=== PATIENT | female | born 1945 | race Caucasian/White ===

== ENCOUNTER → 2016-11-20 | Outpatient (CLI) | payer MEDICARE, OTHER ==
[~2016-11-20] MED LIST: AMBI5TAB PO; APIX5TAB PO; CEFT500T3 PO; DILT31TA PO; GUAI100S5 PO; IPRA0.02 NEB; LEVA750T PO; METF-382 PO; METO25TA3 PO; METO50TA PO; MUCI30TA2 PO; MULT1TAB PO; PRAV40TA2 PO; PRED5PAK PO; PROB1CAP12 PO; PROT40TA PO; SM M250T PO; SODI7NEB3 NEB; SOTA120T PO
[2016-11-20 13:08] LABS: HEMATOCRIT 33.5 % (35.0-46.0); MEAN CELL VOLUME 82.9 FL (80.0-100.0); MEAN CORPUSCULAR HEMOGLOBIN 27.3 PG (27.0-34.0); MEAN CORPUSCULAR HGB CONC 32.9 % (32.0-36.0); PLATELET COUNT 283 TH/MM3 (150-450); RED BLOOD COUNT 4.04 MIL/MM3 (4.00-5.30); RED CELL DISTRIBUTION WIDTH 13.2 % (11.6-17.2); REVIEW FLAG FINAL; WHITE BLOOD COUNT 13.5 TH/MM3 (4.0-11.0)
[2016-11-20 13:31] LABS: ALKALINE PHOSPHATASE 61 U/L (45-117); ALT (GPT) 16 U/L (10-53); ANION GAP 10 MEQ/L (5-15); AST (GOT) 10 U/L (15-37); BLOOD UREA NITROGEN 14 MG/DL (7-18); CHLORIDE 97 MEQ/L (98-107); FREE T4 1.35 NG/DL (0.76-1.46); GLOMERULAR FILTRATION RATE 87 ML/MIN (>89); GLUCOSE,FASTING 93 MG/DL (74-99); HDL CHOLESTEROL 56.7 MG/DL (40.0-60.0); LDL CHOLESTEROL 41 MG/DL (0-99); POTASSIUM 3.1 MEQ/L (3.5-5.1); SODIUM (NA) 138 MEQ/L (136-145); TOTAL BILIRUBIN ADULT 0.4 MG/DL (0.2-1.0)
[2016-11-20 17:10] LABS: HEMOGLOBIN A1b 2.1 %; HEMOGLOBIN Ao 83.8 %; HEMOGLOBIN LA1C 1.7 %; HEMOGLOBIN P3 3.7 %
== END ==
LOC: PLAB 07:45
PROVIDERS: ATTEND Family Medicine
DX: E11.65 Type 2 diabetes mellitus with hyperglycemia (principal); I10 Essential (primary) hypertension; R53.83 Other fatigue
CPT/HCPCS: 80053; 80061; 83036; 84439; 84443; 85027

== ENCOUNTER 2016-12-01 13:04 | Inpatient (IN) | payer MEDICARE, OTHER ==
[2016-12-01] VITALS (10 sets, daily range): BP systolic 90–150; BP diastolic 47–75; PULSE 93–137; RESP 14–18; TEMP 98.2–98.3; O2SAT 95–98
[~2016-12-01] VITALS: Ht 172.7 cm; Wt 60.0 kg
[~2016-12-01 13:04] MED LIST changes: -AMBI5TAB PO; -APIX5TAB PO; -DILT31TA PO; -GUAI100S5 PO; -IPRA0.02 NEB; -LEVA750T PO; -METO25TA3 PO; -METO50TA PO; -MULT1TAB PO; -PRED5PAK PO; -PROB1CAP12 PO; -PROT40TA PO; -SM M250T PO; -SODI7NEB3 NEB
--- NOTE | 2016-12-01 14:55 | PD ---
HPI Chief Complaint: GI Complaint Time Seen by Provider: 14:51 Travel History International Travel<30 days: No Contact w/Intl Traveler<30days: No Traveled to known affect area: No History of Present Illness HPI 71-year-old female with history of hypertension, A. fib with RVR, status post ablation October 29, 2016, diabetes, presents to emergency department for evaluation of not feeling well. Patient states that she has progressively gone "downhill" since her ablation October 29. 2 weeks ago she was on Bactrim for upper respiratory infection but this has not seemed to fully resolve. Patient has had intermittent fevers over the last 2 weeks with most recent fever last evening 101 and MAXIMUM TEMPERATURE 103. Patient states that she has had diarrhea as well. She feels weak. States that her blood pressure has been low in her heart rate has at times been going up into the 150s. She has been dizzy with transition to standing. She denies chest pain or tightness. No difficulty breathing. She has no pain to report. She has not been nauseous or vomiting. She has no other symptoms to report. Patient is followed by Dr. Cui for bronchiectasis. PFSH Past Medical History Hx Anticoagulant Therapy: Yes Arthritis: Yes Atrial Fibrillation: Yes Depression: Yes Heart Rhythm Problems: Yes Cancer: No Cardiovascular Problems: Yes Diabetes: Yes Diminished Hearing: No Endocrine: Yes Genitourinary: No Hepatitis: No Hiatal Hernia: No Hypertension: Yes Immune Disorder: No Musculoskeletal: Yes (OSTEOARTHRITIS IN NECK) Neurologic: No Psychiatric: No Reproductive: No Respiratory: Yes Thyroid Disease: No Menopausal: Yes Tubal Ligation: Yes Past Surgical History Abdominal Surgery: Yes (APPENDECTOMY) AICD: No Appendectomy: Yes Cardiac Surgery: Yes (ATRIAL ABLATION) Ear Surgery: No Endocrine Surgery: No Eye Surgery: Yes (CATARACTS REMOVAL WITH LENSE IMPLANTS) Genitourinary Surgery: No Gynecologic Surgery: Yes (BILATERAL TUBAL LIGATION) Joint Replacement: Yes (LEFT HIP) Oral Surgery: No Pacemaker: No Thoracic Surgery: Yes (BREAST AUGMENTATION) Other Surgery: Yes (RECTAL FISTULA REPAIR, BREAST AUGMENTATION) Social History Alcohol Use: No Tobacco Use: No Substance Use: No Allergies-Medications (Allergen,Severity, Reaction): Coded Allergies: Bactrim (Verified Allergy, Intermediate, Nausea/Vomiting, 11/10/16) Sulfa (Verified Allergy, Intermediate, Nausea/Vomiting, 11/10/16) *MDRO Multi-Drug Resistant Organism (Unverified Allergy, Unknown, 11/10/16 ) MRSA Reported Meds & Prescriptions Reported Meds & Active Scripts Active Reported Sotalol (Sotalol HCl) 120 Mg Tab 120 Mg PO BID Pravastatin 40 Mg Tab 40 Mg PO DAILY Metformin ER (Metformin HCl) 1,000 Mg Nasreen 1,000 Mg PO DAILY With evening meal Mucinex DM (Dextromethorphan-Guaifenesin) 30-600 Mg Tab 2 Tab PO BID PRN Ceftin (Cefuroxime Axetil) 500 Mg Tab 500 Mg PO BID Review of Systems Except as stated in HPI: all other systems reviewed are Neg Physical Exam Narrative GENERAL: Well-nourished female patient, ambulatory and in no acute distress SKIN: Warm and dry. HEAD: Atraumatic. Normocephalic. EYES: Pupils equal and round. No scleral icterus. No injection or drainage. ENT: No nasal bleeding or discharge. Mucous membranes pink and moist. NECK: Trachea midline. No JVD. CARDIOVASCULAR: Elevated rate and rhythm. No murmur appreciated. RESPIRATORY: No accessory muscle use. Coarse cough, diminished bases to auscultation. Breath sounds equal bilaterally. GASTROINTESTINAL: Abdomen soft, non-tender, nondistended. Hepatic and splenic margins not palpable. MUSCULOSKELETAL: No obvious deformities. No clubbing. No cyanosis. No edema. NEUROLOGICAL: Awake and alert. No obvious cranial nerve deficits. Motor grossly within normal limits. Normal speech. PSYCHIATRIC: Appropriate mood and affect; insight and judgment normal. Data Data Last Documented VS Vital Signs Date Time Temp Pulse Resp B/P Pulse Ox O2 Delivery O2 Flow Rate FiO2 12/01/16 13:07 98.2 108 14 121/75 95 Room Air Orders Electrocardiogram (12/01/16 14:49) Complete Blood Count With Diff (12/01/16 14:49) Comprehensive Metabolic Panel (12/01/16 14:49) Prothrombin Time / Inr (Pt) (12/01/16 14:49) Act Partial Throm Time (Ptt) (12/01/16 14:49) Lactic Acid Sepsis Protocol (12/01/16 14:49) Magnesium (Mg) (12/01/16 14:49) Ckmb (Isoenzyme) Profile (12/01/16 14:49) Troponin I (12/01/16 14:49) Urinalysis - C+S If Indicated (12/01/16 14:49) Influenzae A/B Antigen (12/01/16 14:49) Blood Culture (12/01/16 14:49) Chest, Single Ap (12/01/16 14:49) C Diff Toxin Pcr (12/01/16 14:49) MDM Medical Decision Making Medical Screen Exam Complete: Yes Emergency Medical Condition: Yes Medical Record Reviewed: Yes Differential Diagnosis Pneumonia versus influenza versus UTI versus sepsis versus electrolyte abnormality versus C. difficile versus gastroenteritis Narrative Course 71-year-old female presents to emergency department for evaluation. Patient appears as though she does not feel well but she is without distress. Heart rate slightly elevated. Workup is initiated here in the emergency department. Once a medical bed becomes available, patient will be transferred and care assumed by that provider. Condition: Stable Jeaneth Barakat Dec 01, 2016 14:55
--- NOTE | 2016-12-01 15:42 | RADRPT ---
EXAM DATE/TIME: 12/01/2016 14:55 [facility] COMPARISON: CHEST SINGLE AP, November 10, 2016, 18:35. INDICATIONS : Short of breath, coughing for 5 days, fever MEDICAL HISTORY : Hypertension. Chronic obstructive pulmonary disease. A-fib SURGICAL HISTORY : cardiac ablation ENCOUNTER: Initial ACUITY: 4 - 6 days PAIN SCORE: 10/10 LOCATION: Bilateral chest FINDINGS: Increased density has developed within the right lung base. Left lung is relatively clear. Lungs are hyperinflated. Heart and mediastinal structures are stable. CONCLUSION: Right basilar opacity characteristic of developing airspace disease. COPD. Brian Alanis MD on December 01, 2016 at 15:39 Board Certified Radiologist. This report was verified electronically.
[2016-12-01] MEDS ORDERED: SODIUM CHLORID 0.9% 500 ML INJ 500 ML IV ONE ×2 (15:45→17:00)
[2016-12-01 15:57] LABS: AUTOMATED NEUTROPHIL # 9.1 TH/MM3 (1.8-7.7); BASOPHIL % 0.4 % (0.0-2.0); EOSINOPHIL # 0.1 TH/MM3 (0-0.4); EOSINOPHIL % 0.8 % (0.0-4.0); HEMATOCRIT 35.4 % (35.0-46.0); HEMO FLAGS DIFF FINAL; LYMPH % 18.3 % (9.0-44.0); LYMPHOCYTE # 2.3 TH/MM3 (1.0-4.8); MEAN CELL VOLUME 82.5 FL (80.0-100.0); MEAN CORPUSCULAR HEMOGLOBIN 27.1 PG (27.0-34.0); MEAN CORPUSCULAR HGB CONC 32.8 % (32.0-36.0); MONO % 8.3 % (0.0-8.0); NEUT % 72.2 % (16.0-70.0); PLATELET COUNT 368 TH/MM3 (150-450); RED BLOOD COUNT 4.29 MIL/MM3 (4.00-5.30); RED CELL DISTRIBUTION WIDTH 12.8 % (11.6-17.2); WHITE BLOOD COUNT 12.5 TH/MM3 (4.0-11.0)
[2016-12-01] MEDS ORDERED: LEVOFLOXACIN 500 MG PREMIX INJ 100 ML IV ONE (16:00)
[2016-12-01 16:06] LABS: APTT (PATIENT) 28.7 SEC (24.3-30.1); PROTHROMBIN TIME - PATIENT 10.9 SEC (9.8-11.6)
--- NOTE | 2016-12-01 16:07 | PD ---
HPI Chief Complaint: GI Complaint Time Seen by Provider: 15:29 Travel History International Travel<30 days: No Contact w/Intl Traveler<30days: No Traveled to known affect area: No History of Present Illness HPI 71-year-old female came to the emergency room with history of vomiting, diarrhea , decrease appetite, weakness for past couple days. Patient has history of bronchiectasis and has been coughing but says the cough is not much different than her baseline cough. She has also been running fever with temperature 103- 102.5. Here she was afebrile. She had in ablation for atrial fibrillation done few months ago from [place]. However today it was noticed on her EKG the patient was in atrial fibrillation with RVR. She's not complaining of any chest pain. PFSH Past Medical History Narrative Medical List of her past medical history as reviewed from the nursing note. Hx Anticoagulant Therapy: Yes Arthritis: Yes Atrial Fibrillation: Yes Depression: Yes Heart Rhythm Problems: Yes Cancer: No Cardiovascular Problems: Yes Diabetes: Yes Patient Takes Glucophage: Yes (12/01/16 0730) Diminished Hearing: No Endocrine: Yes Genitourinary: No Hepatitis: No Hiatal Hernia: No Hypertension: Yes Immune Disorder: No Musculoskeletal: Yes (OSTEOARTHRITIS IN NECK) Neurologic: No Psychiatric: No Reproductive: No Respiratory: Yes Thyroid Disease: No Tetanus Vaccination: > 5 Years Influenza Vaccination: Yes Menopausal: Yes Tubal Ligation: Yes Past Surgical History Abdominal Surgery: Yes (APPENDECTOMY) AICD: No Appendectomy: Yes Cardiac Surgery: Yes (ATRIAL ABLATION) Ear Surgery: No Endocrine Surgery: No Eye Surgery: Yes (CATARACTS REMOVAL WITH LENSE IMPLANTS) Genitourinary Surgery: No Gynecologic Surgery: Yes (BILATERAL TUBAL LIGATION) Joint Replacement: Yes (LEFT HIP) Oral Surgery: No Pacemaker: No Thoracic Surgery: Yes (BREAST AUGMENTATION) Other Surgery: Yes (RECTAL FISTULA REPAIR, BREAST AUGMENTATION, SINUS SURGERY ) Social History Alcohol Use: No Tobacco Use: No Substance Use: No Allergies-Medications (Allergen,Severity, Reaction): Coded Allergies: Bactrim (Verified Allergy, Intermediate, Nausea/Vomiting, 12/01/16) Sulfa (Verified Allergy, Intermediate, Nausea/Vomiting, 12/01/16) *MDRO Multi-Drug Resistant Organism (Unverified Allergy, Unknown, 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 Comments List of her allergies reviewed from the nursing note. Reported Meds & Prescriptions Reported Meds & Active Scripts Active Reported Eliquis (Apixaban) 5 Mg Tab 5 Mg PO BID Cardizem (Diltiazem HCl) 30 Mg Tab 30 Mg PO BID Sotalol (Sotalol HCl) 120 Mg Tab 120 Mg PO BID Pravastatin 40 Mg Tab 40 Mg PO AC DINNER Metformin ER (Metformin HCl) 1,000 Mg Nasreen 1,000 Mg PO AC DINNER With evening meal Mucinex DM (Dextromethorphan-Guaifenesin) 30-600 Mg Tab 1 Tab PO BID PRN Narrative Medication List of her home medications reviewed from the nursing note. Review of Systems Except as stated in HPI: all other systems reviewed are Neg Physical Exam Narrative GENERAL: Awake, alert, elderly, frail, moderate distress. SKIN: Warm and dry. HEAD: Atraumatic. Normocephalic. EYES: Pupils equal and round. No scleral icterus. No injection or drainage. ENT: No nasal bleeding or discharge. Mucous membranes pink and moist. NECK: Trachea midline. No JVD. CARDIOVASCULAR: Irregularly irregular rhythm, RVR. No murmur appreciated. RESPIRATORY: No accessory muscle use. Clear to auscultation. Breath sounds equal bilaterally. GASTROINTESTINAL: Abdomen soft, non-tender, nondistended. Hepatic and splenic margins not palpable. MUSCULOSKELETAL: No obvious deformities. No clubbing. No cyanosis. No edema. NEUROLOGICAL: Awake and alert. No obvious cranial nerve deficits. Motor grossly within normal limits. Normal speech. PSYCHIATRIC: Appropriate mood and affect; insight and judgment normal. Data Data Last Documented VS Vital Signs Date Time Temp Pulse Resp B/P Pulse Ox O2 Delivery O2 Flow Rate FiO2 12/01/16 16:30 107 18 125/58 97 Room Air 12/01/16 13:07 98.2 Orders Electrocardiogram (12/01/16 14:49) Complete Blood Count With Diff (12/01/16 14:49) Comprehensive Metabolic Panel (12/01/16 14:49) Prothrombin Time / Inr (Pt) (12/01/16 14:49) Act Partial Throm Time (Ptt) (12/01/16 14:49) Lactic Acid Sepsis Protocol (12/01/16 14:49) Magnesium (Mg) (12/01/16 14:49) Ckmb (Isoenzyme) Profile (12/01/16 14:49) Troponin I (12/01/16 14:49) Urinalysis - C+S If Indicated (12/01/16 14:49) Influenzae A/B Antigen (12/01/16 14:49) Blood Culture (12/01/16 14:49) Chest, Single Ap (12/01/16 14:49) C Diff Toxin Pcr (12/01/16 14:49) Sodium Chlorid 0.9% 500 Ml Inj (Ns 500 M (12/01/16 15:45) Blood Glucose (12/01/16 15:35) Blood Culture (12/01/16 15:59) Levofloxacin 500 Mg Premix Inj (Levaquin (12/01/16 16:00) Urine Culture (12/01/16 16:30) Sodium Chlorid 0.9% 500 Ml Inj (Ns 500 M (12/01/16 17:00) Admit Order (Ed Use Only) (12/01/16 17:14) Labs Laboratory Tests Test 12/01/16 12/01/16 15:35 16:30 White Blood Count 12.5 TH/MM3 Red Blood Count 4.29 MIL/MM3 Hemoglobin 11.6 GM/DL Hematocrit 35.4 % Mean Corpuscular Volume 82.5 FL Mean Corpuscular Hemoglobin 27.1 PG Mean Corpuscular Hemoglobin 32.8 % Concent Red Cell Distribution Width 12.8 % Platelet Count 368 TH/MM3 Mean Platelet Volume 8.2 FL Neutrophils (%) (Auto) 72.2 % Lymphocytes (%) (Auto) 18.3 % Monocytes (%) (Auto) 8.3 % Eosinophils (%) (Auto) 0.8 % Basophils (%) (Auto) 0.4 % Neutrophils # (Auto) 9.1 TH/MM3 Lymphocytes # (Auto) 2.3 TH/MM3 Monocytes # (Auto) 1.0 TH/MM3 Eosinophils # (Auto) 0.1 TH/MM3 Basophils # (Auto) 0.0 TH/MM3 CBC Comment DIFF FINAL Differential Comment Prothrombin Time 10.9 SEC Prothromb Time International 1.0 RATIO Ratio Activated Partial 28.7 SEC Thromboplast Time Sodium Level 135 MEQ/L Potassium Level 4.2 MEQ/L Chloride Level 96 MEQ/L Carbon Dioxide Level 26.9 MEQ/L Anion Gap 12 MEQ/L Blood Urea Nitrogen 9 MG/DL Creatinine 0.61 MG/DL Estimat Glomerular Filtration 96 ML/MIN Rate Random Glucose 131 MG/DL Lactic Acid Level 2.0 mmol/L Calcium Level 9.4 MG/DL Magnesium Level 1.6 MG/DL Total Bilirubin 0.3 MG/DL Aspartate Amino Transf 11 U/L (AST/SGOT) Alanine Aminotransferase 19 U/L (ALT/SGPT) Alkaline Phosphatase 72 U/L Total Creatine Kinase 29 U/L Troponin I LESS THAN 0.02 NG/ML Total Protein 7.8 GM/DL Albumin 3.2 GM/DL Urine Color YELLOW Urine Turbidity CLEAR Urine pH 6.0 Urine Specific [place] 1.008 Urine Protein NEG mg/dL Urine Glucose (UA) NEG mg/dL Urine Ketones NEG mg/dL Urine Occult Blood TRACE Urine Nitrite NEG Urine Bilirubin NEG Urine Urobilinogen LESS THAN 2.0 MG/DL Urine Leukocyte Esterase LARGE Urine RBC 7 /hpf Urine WBC 27 /hpf Urine Squamous Epithelial 2 /hpf Cells Urine Bacteria RARE /hpf Urine Mucus FEW /lpf Microscopic Urinalysis Comment CATH-CULTURE IND MDM Medical Decision Making Medical Screen Exam Complete: Yes Emergency Medical Condition: Yes Medical Record Reviewed: Yes Interpretation(s) Twelve-lead EKG was reviewed by me. Atrial fibrillation, RVR, normal axis. Heart rate of 139 bpm. Differential Diagnosis Pneumonia, electrolyte abnormalities, colitis Narrative Course 4:47 PM chest x-ray was suggestive of a right lower lobe infiltrate. Patient was started on Levaquin. After getting 500 cc of IV fluid bolus her heart rate came down to 106. I've ordered another 500 cc of fluid bolus. She has some leukocytosis and left shift. She will require admission. 4:52 PM urine analysis shows UTI. Awaiting for the hospitalist to call back. 5:23 PM I was in the room talking to the patient and letting her know about her results and the decision to admit her when I noticed that on the monitor she was normal sinus rhythm. Patient is comfortable with the plan for admission. I answered all her questions to the best of my ability. Procedures EKG Prior to Arrival: Yes Diagnosis Primary Impression: Atrial fibrillation with tachycardic ventricular rate Additional Impressions: UTI (urinary tract infection) Qualified Code: N39.0 - Urinary tract infection without hematuria, site unspecified Pneumonia Qualified Code: J18.1 - Pneumonia of right lower lobe due to infectious organism Dehydration Admitting Information Admitting Physician Requests: Admit Condition: Stable Thor,Shravanti R. MD Dec 01, 2016 16:07 Marya Mcrae MD Dec 01, 2016 16:07
[2016-12-01 16:38] LABS: ANION GAP 12 MEQ/L (5-15); AST (GOT) 11 U/L (15-37); BICARBONATE 26.9 MEQ/L (21.0-32.0); BLOOD UREA NITROGEN 9 MG/DL (7-18); CHLORIDE 96 MEQ/L (98-107); GLOMERULAR FILTRATION RATE 96 ML/MIN (>89); MAGNESIUM 1.6 MG/DL (1.5-2.5); POTASSIUM 4.2 MEQ/L (3.5-5.1); SODIUM (NA) 135 MEQ/L (136-145)
[2016-12-01 16:43] LABS: ALKALINE PHOSPHATASE 72 U/L (45-117); ALT (GPT) 19 U/L (10-53); TOTAL BILIRUBIN ADULT 0.3 MG/DL (0.2-1.0)
[2016-12-01 16:46] LABS: BACTERIA, URINE RARE /hpf; BLOOD, URINE TRACE (NEG); GLUCOSE,URINE NEG (NEG); KETONE, URINE NEG (NEG); MUCUS URINE FEW /lpf (OCC); NITRITE,URINE NEG (NEG); SQUAMOUS EPITHELIAL CELL URINE 2 /hpf (0-5); URINE COLOR YELLOW (YELLW/STRAW)
[2016-12-01 16:47] LABS: COMMENT (UR) CATH-CULTURE IND; CULTURE IF INDICATED CATH CULTURE IND
[2016-12-01] MEDS ORDERED: DILT31TA PO (17:02)
[2016-12-01] MEDS ORDERED: APIX5TAB PO (17:02)
[2016-12-01 17:11] LABS: CREATINE KINASE 29 U/L (26-192)
--- NOTE | 2016-12-01 18:33 | HHI.HP ---
HPI Service [facility] Primary Care Physician Alma Lopez MD Admission Diagnosis pneumonia, UTI, atrial fibrillation with RVR, dehydration Diagnoses: Chief Complaint: weakness, SOB, elevated HR, diarrhea. Travel History International Travel<30 Days: No Contact w/Intl Traveler <30 Da: No Traveled to Known Affected Are: No History of Present Illness 71-year-old female with a medical history significant for atrial fibrillation status post ablation 2, most recently in October at [facility]. She also has a history of bronchiectasis, diabetes, and hyperlipidemia. The patient presented with multiple complaints. She has a chronic cough from bronchiectasis and has been on alternating tremor and doxycycline per her fingerprint expert. The patient's cough is productive with yellow to green secretions. She endorsed having fevers up to 103 Over the past couple of days. For the past 4-5 days she has been having diarrhea 1-2 times a day with associated abdominal cramps. She also has been having issues with her heart rate going up to 150 at times. Initially she was put on Cardizem 3 times daily in addition to sotalol. However she reports this causes her blood pressure to drop to the point where she would become dizzy. She did contact her process design engineer's at [facility] and her dose was decreased to 30 mg twice daily. However she continues to experience the same symptoms. She also complained of burning with urination. In the emergency room, the patient's EKG was noted to be A. fib with RVR with a rate of 139. She was given IV fluid in the rate came down to low 100s in sinus rhythm. Chest x-ray revealed a right basilar opacity characteristic of developing airspace disease. Her urinalysis is abnormal and suggestive of UTI. Review of Systems Constitutional: COMPLAINS OF: Fever, Chills Endocrine: DENIES: Polydipsia Eyes: COMPLAINS OF: Vision loss Ears, nose, mouth, throat: DENIES: Nasal discharge, Throat pain Respiratory: COMPLAINS OF: Cough, Sputum production, Shortness of breath Cardiovascular: COMPLAINS OF: Palpitations, Dyspnea on Exertion, DENIES: Chest pain, Lower Extremity Edema Gastrointestinal: DENIES: Nausea Genitourinary: COMPLAINS OF: Urgency, Dysuria Integumentary: DENIES: Rash Neurologic: DENIES: Headache Psychiatric: DENIES: Mood changes Past Family Social History Past Medical History Atrial fibrillation status post ablation 2, most recently in October of this year Type 2 diabetes Bronchiectasis Osteoarthritis Past Surgical History Appendectomy Cardiac Ablation 2 Bilateral tubal ligation Left hip surgery Breast augmentation Reported Medications Reported Meds & Active Scripts Active Reported Eliquis (Apixaban) 5 Mg Tab 5 Mg PO BID Cardizem (Diltiazem HCl) 30 Mg Tab 30 Mg PO BID Sotalol (Sotalol HCl) 120 Mg Tab 120 Mg PO BID Pravastatin 40 Mg Tab 40 Mg PO AC DINNER Metformin ER (Metformin HCl) 1,000 Mg Nasreen 1,000 Mg PO AC DINNER With evening meal Mucinex DM (Dextromethorphan-Guaifenesin) 30-600 Mg Tab 1 Tab PO BID PRN Allergies: Coded Allergies: Bactrim (Verified Allergy, Intermediate, Nausea/Vomiting, 12/01/16) Sulfa (Verified Allergy, Intermediate, Nausea/Vomiting, 12/01/16) *MDRO Multi-Drug Resistant Organism (Unverified Allergy, Unknown, 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 Family History Mother of old age in her 90s. Father's history is unknown. Social History Patient never smoked but her was a lifelong smoker who of lung cancer. She was also exposed to secondhand smoking at her workplace. She denies alcohol use. Physical Exam Vital Signs Vital Signs Date Time Temp Pulse Resp B/P Pulse Ox O2 Delivery O2 Flow Rate FiO2 12/01/16 18:00 105 16 144/64 98 Room Air 12/01/16 16:30 107 18 125/58 97 Room Air 12/01/16 15:30 137 18 102/58 97 Room Air 12/01/16 13:07 98.2 108 14 121/75 95 Room Air Physical Exam GENERAL: Elderly female. She has a spasmodic cough. SKIN: No rashes, ecchymoses or lesions. Cool and dry. HEAD: Atraumatic. Normocephalic. No temporal or scalp tenderness. EYES: Pupils equal round and reactive. Extraocular motions intact. No scleral icterus. No injection or drainage. ENT: Nose without bleeding, purulent drainage or septal hematoma. Throat without erythema, tonsillar hypertrophy or exudate. Uvula midline. Airway patent. NECK: Trachea midline. No JVD or lymphadenopathy. Supple, nontender, no meningeal signs. CARDIOVASCULAR: Rate of 105 and regular rhythm without murmurs, gallops, or rubs. RESPIRATORY: Diminished breath sounds bilaterally at the bases. There is some occasional rhonchi bilaterally. No appreciable wheezing. GASTROINTESTINAL: Abdomen soft, non-tender, nondistended. No hepato-splenomegaly , or palpable masses. No guarding. MUSCULOSKELETAL: Extremities without clubbing, cyanosis, or edema. No joint tenderness, effusion, or edema noted. No calf tenderness. Negative Homans sign bilaterally. NEUROLOGICAL: Awake and alert. Cranial nerves II through XII intact. Motor and sensory grossly within normal limits. Five out of 5 muscle strength in all muscle groups. Normal speech. Laboratory Laboratory Tests Test 12/01/16 12/01/16 15:35 16:30 White Blood Count 12.5 Red Blood Count 4.29 Hemoglobin 11.6 Hematocrit 35.4 Mean Corpuscular Volume 82.5 Mean Corpuscular Hemoglobin 27.1 Mean Corpuscular Hemoglobin 32.8 Concent Red Cell Distribution Width 12.8 Platelet Count 368 Mean Platelet Volume 8.2 Neutrophils (%) (Auto) 72.2 Lymphocytes (%) (Auto) 18.3 Monocytes (%) (Auto) 8.3 Eosinophils (%) (Auto) 0.8 Basophils (%) (Auto) 0.4 Neutrophils # (Auto) 9.1 Lymphocytes # (Auto) 2.3 Monocytes # (Auto) 1.0 Eosinophils # (Auto) 0.1 Basophils # (Auto) 0.0 CBC Comment DIFF FINAL Differential Comment Prothrombin Time 10.9 Prothromb Time International 1.0 Ratio Activated Partial 28.7 Thromboplast Time Sodium Level 135 Potassium Level 4.2 Chloride Level 96 Carbon Dioxide Level 26.9 Anion Gap 12 Blood Urea Nitrogen 9 Creatinine 0.61 Estimat Glomerular Filtration 96 Rate Random Glucose 131 Lactic Acid Level 2.0 Calcium Level 9.4 Magnesium Level 1.6 Total Bilirubin 0.3 Aspartate Amino Transf 11 (AST/SGOT) Alanine Aminotransferase 19 (ALT/SGPT) Alkaline Phosphatase 72 Total Creatine Kinase 29 Troponin I LESS THAN 0.02 Total Protein 7.8 Albumin 3.2 Urine Color YELLOW Urine Turbidity CLEAR Urine pH 6.0 Urine Specific [place] 1.008 Urine Protein NEG Urine Glucose (UA) NEG Urine Ketones NEG Urine Occult Blood TRACE Urine Nitrite NEG Urine Bilirubin NEG Urine Urobilinogen LESS THAN 2.0 Urine Leukocyte Esterase LARGE Urine RBC 7 Urine WBC 27 Urine Squamous Epithelial 2 Cells Urine Bacteria RARE Urine Mucus FEW Microscopic Urinalysis Comment CATH-CULTURE IND Date/Time Procedure Status Source Growth 12/01/16 16:30 Urine Culture Received Urine Catheterized Urine Pending 12/01/16 15:55 Influenza Types A,B Antigen (SANTOS) - Final Complete Nasal Washing NEGATIVE FOR FLU A AND B ANTIGEN.... 12/01/16 15:35 Aerobic Blood Culture Received Blood Peripheral Pending 12/01/16 15:35 Anaerobic Blood Culture Received Blood Peripheral Pending Result Diagram: 12/01/16 1535 12/01/16 1535 Imaging Last Impressions Chest X-Ray 12/01/16 1449 Signed Impressions: Service Date/Time: Thursday, December 01, 2016 14:55 - CONCLUSION: Right basilar opacity characteristic of developing airspace disease. COPD. Brian Alanis MD Assessment and Plan Problem List: (1) Pneumonia ICD Code: J18.9 Status: Acute (2) UTI (urinary tract infection) ICD Code: N39.0 Status: Acute (3) Atrial fibrillation with tachycardic ventricular rate ICD Code: I48.91 Status: Acute (4) Dehydration ICD Code: E86.0 Status: Acute Assessment and Plan 71-year-old female with Pneumonia/Bronchiectasis: Patient with known history of bronchiectasis, chronic cough. Has been on and off antibiotics Bactrim and doxycycline outpatient. - Continue Levaquin. Blood cultures pending - Scheduled breathing treatments, incentive spirometry. Robitussin for cough. - Consult the patient's fingerprint expert Dr. Cui for assistance. - Urine Legionella and pneumococcal. Obtain sputum culture A. fib with RVR on presentation: The patient's heart rate has since come down with IV fluid. She recently had a cardiac ablation at the [facility] in October. She normally takes sotalol and Cardizem. She reports having hypotensive episodes with Cardizem recently. She has been in contact with her process design engineer at the [facility] where advised her to come to the ER today her blood pressure dropped again. - For now rate is still elevated and BP is normal. we'll continue sotalol and Cardizem, home dose. - Consult the patient's local process design engineer, Dr. Smith to adjust rate control medications as indicated. - Continue Eliquis Urinary tract infection: Abnormal urinalysis. - Patient on Levaquin as above. Follow urine cultures. Dehydration/hyponatremia: Continue IV fluid 100 cc/h. Reassess fluid status in the morning. Diabetes: Continue Metformin. Diabetic diet. DVT PPx: Patient on Eliquis. Discussed Condition With Dr. Mcrae Physician Certification 2 Midnight Certification Type: Admission for Inpatient Services Order for Inpatient Services The services are ordered in accordance with Medicare regulations or non- Medicare payer requirements, as applicable. In the case of services not specified as inpatient-only, they are appropriately provided as inpatient services in accordance with the 2-midnight benchmark. Estimated LOS (days): 3 days is the estimated time the patient will need to remain in the hospital, assuming treatment plan goals are met and no additional complications. Post-Hospital Plan: Home Problem Qualifiers (1) Pneumonia: Qualified Code: J18.1 - Pneumonia of right lower lobe due to infectious organism (2) UTI (urinary tract infection): Qualified Code: N39.0 - Urinary tract infection without hematuria, site unspecified Chucho Segura MD Dec 01, 2016 18:33
[2016-12-01] MEDS ORDERED: NS + KCL 20 MEQ INJ 1,000 ML IV SCH (18:46)
[2016-12-01] MEDS ORDERED: SODIUM CHLORIDE 0.9% FLUSH 5 ML FLUSH IV FLUSH PRN (19:00)
[2016-12-01] MEDS ORDERED: PILL SPLITTER OTHER PRN (19:15)
[2016-12-01] MEDS ORDERED: PRAVASTATIN SOD 40 MG TAB PO SCH (20:00)
[2016-12-01] MEDS: RESP: ALBUTEROL 2.5 MG/IPRATROPIUM 0.5 MG NEB (SCH) INH (20:47)
[2016-12-01] MEDS: APIXABAN 5 MG TABLET PO SCH (20:58)
[2016-12-01] MEDS: SOTALOL HCL 80 MG TAB PO SCH (20:58)
[2016-12-01] MEDS: metFORMIN HCL 500 MG TAB PO SCH (20:58)
[2016-12-01] MEDS: DILTIAZEM HCL 30 MG TAB PO SCH (20:58)
[2016-12-01] MEDS: SODIUM CHLORIDE 0.9% FLUSH 5 ML FLUSH IV FLUSH SCH (21:00)
[2016-12-01] MEDS: methylPREDNISolone SOD SUCC 40 MG/1 ML VIAL IV SCH (21:02)
[2016-12-01] MEDS: guaiFENesin/CODEINE SYRUP 200 MG/20 MG/10 ML CUP PO PRN (22:23)
[2016-12-02] VITALS (7 sets, daily range): BP systolic 100–113; BP diastolic 55–63; PULSE 87–107; RESP 16–20; TEMP 98–98.2; O2SAT 93–96
[2016-12-02] MEDS: RESP: ALBUTEROL 2.5 MG/IPRATROPIUM 0.5 MG NEB (SCH) INH ×4 (03:36→19:43)
[2016-12-02 07:25] LABS: AUTOMATED NEUTROPHIL # 7.8 TH/MM3 (1.8-7.7); HEMATOCRIT 31.2 % (35.0-46.0); HEMO FLAGS DIFF FINAL; LYMPH % 6.8 % (9.0-44.0); LYMPHOCYTE # 0.6 TH/MM3 (1.0-4.8); MEAN CELL VOLUME 82.7 FL (80.0-100.0); MEAN CORPUSCULAR HEMOGLOBIN 27.6 PG (27.0-34.0); MEAN CORPUSCULAR HGB CONC 33.4 % (32.0-36.0); NEUT % 91.2 % (16.0-70.0); PLATELET COUNT 305 TH/MM3 (150-450); RED BLOOD COUNT 3.78 MIL/MM3 (4.00-5.30); RED CELL DISTRIBUTION WIDTH 12.9 % (11.6-17.2); WHITE BLOOD COUNT 8.5 TH/MM3 (4.0-11.0)
[2016-12-02 07:54] LABS: BICARBONATE 26.8 MEQ/L (21.0-32.0); POTASSIUM 4.3 MEQ/L (3.5-5.1)
[2016-12-02] MEDS: metFORMIN HCL 500 MG TAB PO SCH (09:03)
[2016-12-02] MEDS: SOTALOL HCL 80 MG TAB PO SCH ×2 (09:04→21:48)
[2016-12-02] MEDS: DILTIAZEM HCL 30 MG TAB PO SCH ×2 (09:04→21:47)
[2016-12-02] MEDS: APIXABAN 5 MG TABLET PO SCH ×2 (09:04→21:48)
[2016-12-02] MEDS: SODIUM CHLORIDE 0.9% FLUSH 5 ML FLUSH IV FLUSH SCH ×2 (09:05→21:49)
[2016-12-02] MEDS: methylPREDNISolone SOD SUCC 40 MG/1 ML VIAL IV SCH ×2 (09:05→21:49)
--- NOTE | 2016-12-02 13:42 | HHI.PR ---
Subjective Remarks Patient reports that she is feeling better. Coughing less. She tolerated breakfast. Some lightheadedness when she gets up. Objective Vitals Vital Signs Date Time Temp Pulse Resp B/P Pulse Ox O2 Delivery O2 Flow Rate FiO2 12/02/16 09:00 96 Room Air 12/02/16 08:00 98.0 104 16 113/63 94 12/02/16 04:20 98.0 96 16 100/58 93 12/02/16 00:50 Room Air 12/01/16 23:54 98.3 93 16 90/50 95 12/01/16 23:24 98.3 84 16 102/47 99 12/01/16 22:20 97 18 100/55 98 Room Air 12/01/16 21:00 101 16 150/71 97 Room Air 12/01/16 20:45 98 12/01/16 20:00 108 16 107/66 97 Room Air 12/01/16 18:00 105 16 144/64 98 Room Air 12/01/16 16:30 107 18 125/58 97 Room Air 12/01/16 15:30 137 18 102/58 97 Room Air I/O 12/01/16 12/01/16 12/01/16 12/02/16 12/02/16 12/02/16 07:00 15:00 23:00 07:00 15:00 23:00 Intake Total 360 ml Output Total 600 ml Balance -240 ml Intake Oral 360 ml Output Urine Total 600 ml # Bowel Movements 0 Result Diagram: 12/02/16 0631 12/02/16 0631 A/P Problem List: (1) Pneumonia ICD Code: J18.9 Status: Acute (2) UTI (urinary tract infection) ICD Code: N39.0 Status: Acute (3) Atrial fibrillation with tachycardic ventricular rate ICD Code: I48.91 Status: Acute (4) Dehydration ICD Code: E86.0 Status: Acute Assessment and Plan 71-year-old female with Pneumonia/Bronchiectasis: Patient with known history of bronchiectasis, chronic cough. Has been on and off antibiotics Bactrim and doxycycline outpatient. - Continue Levaquin. Blood cultures pending - Scheduled breathing treatments, incentive spirometry. Robitussin for cough. - Consult the patient's air battle manager Dr. Cui for assistance. - Urine Legionella and pneumococcal. Obtain sputum culture A. fib with RVR on presentation: The patient's heart rate has since come down with IV fluid. She recently had a cardiac ablation at the [facility] in October. She normally takes sotalol and Cardizem. She reports having hypotensive episodes with Cardizem recently. She has been in contact with her retail attendant at the [facility] where advised her to come to the ER. - Rate now controlled but episodes of borderline low BP, she reports lightheadedness with getting up. We'll continue sotalol and Cardizem, home dose. - Consult the patient's local retail attendant, Dr. Smith to adjust rate control medications if indicated. - Continue Eliquis Urinary tract infection: Abnormal urinalysis. - Patient on Levaquin as above. Follow urine cultures. Dehydration/hyponatremia: Improved with IVF. Encourage oral hydration. Diabetes: Continue Metformin. Diabetic diet. DVT PPx: Patient on Eliquis. Problem Qualifiers (1) Pneumonia: Qualified Code: J18.1 - Pneumonia of right lower lobe due to infectious organism (2) UTI (urinary tract infection): Qualified Code: N39.0 - Urinary tract infection without hematuria, site unspecified Chucho Segura MD Dec 02, 2016 13:42
--- NOTE | 2016-12-02 14:13 | PD.CONS ---
HPI Service Cardiology Physicians Consult Requested By Dr Segura Reason for Consult Afib RVR Primary Care Physician Alma Lopez MD History of Present Illness The patient is a 71 year old female well known to our practice with a cardiac history of atrial fibrillation on Eliquis s/p recent ablation at [facility], HLD, and DM. Other notable history of bronchiectasis. The patient presented to the hospital for generalized weakness, low blood pressure and high heart rate. She states that she has a 2 weeks history of watery diarrhea. She was on doxycycline prior to onset of symptoms. She denies CP. She has a productive cough the yellow sputum. Review of Systems Consitutional: COMPLAINS OF: Fatigue, DENIES: Fever, Chills, Weight gain, Weight loss Eyes: DENIES: Amaurosis Fugax, Change in vision HEENT: COMPLAINS OF: Lightheadedness, DENIES: Change in hearing Respiratory: COMPLAINS OF: Cough, Shortness of breath, Sputum production, DENIES: See HPI, Snoring, Wheezing Cardiovascular: COMPLAINS OF: Palpitations, Tachycardia, DENIES: See HPI, Chest pain, Syncope Gastrointestinal: COMPLAINS OF: Change in bowel habits, DENIES: Nausea, Vomiting, Reflux, Bloody stools, Melena Genitourinary: DENIES: Urinary incontinence, Difficulty voiding Integumentary: DENIES: Rash Neurologic: DENIES: Tingling or numbness, Memory problems, Poor Balance, Stroke symptoms Musculoskeletal: DENIES: Joint pain, Muscle pain, Limited range of motion, Back pain Psychiatric: DENIES: Anxiety, Depression, Sleep disturbances Hematologic: DENIES: Bruising tendencies, Bleeding tendencies Endocrine: DENIES: Weight gain, Weight loss, Thyroid disease Past Family Social History Allergies: Coded Allergies: Bactrim (Verified Allergy, Intermediate, Nausea/Vomiting, 12/01/16) Sulfa (Verified Allergy, Intermediate, Nausea/Vomiting, 12/01/16) *MDRO Multi-Drug Resistant Organism (Unverified Allergy, Unknown, 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 Past Medical History See HPI Past Surgical History Cardiac afib ablation 10/2016 Nasal surgery 2015 Sinus surgery 2013 Appendectomy Breast augmentation Left hip replacement Reported Medications Reviewed Active Ordered Medications Current Medications Medications (Trade) Dose Ordered Sig/Arvind Route Start Time Stop Time Status Last Admin (Eliquis) 5 mg BID PO 12/01/16 21:00 12/02/16 09:04 (Cardizem) 30 mg BID PO 12/01/16 21:00 12/02/16 09:04 (Betapace) 120 mg BID PO 12/01/16 21:00 12/02/16 09:04 (NS Flush) 2 ml UNSCH PRN IV FLUSH 12/01/16 19:00 IV Flush 2 ml 2 ml BID IV FLUSH 12/01/16 21:00 12/02/16 09:05 (Levaquin 750 Mg Premix Inj) 150 ml @ 100 mls/hr Q24H IV 12/02/16 16:00 (SoluMEDROL INJ) 40 mg Q12HR IV 12/01/16 21:00 12/02/16 09:05 (Robitussin Ac 200-20 Mg/10 ml Liq) 10 ml Q4H PRN PO 12/01/16 20:00 12/01/16 22:23 (Pill Splitter) 1 ea UNSCH PRN OTHER 12/01/16 19:15 (Glucophage) 1,000 mg BID PO 12/02/16 21:00 12/02/16 11:43 Family History non contributory Social History non smoker, no ETOH Physical Exam Vital Signs Vital Signs Date Time Temp Pulse Resp B/P Pulse Ox O2 Delivery O2 Flow Rate FiO2 12/02/16 09:00 96 Room Air 12/02/16 08:00 98.0 104 16 113/63 94 12/02/16 04:20 98.0 96 16 100/58 93 12/02/16 00:50 Room Air 12/01/16 23:54 98.3 93 16 90/50 95 12/01/16 23:24 98.3 84 16 102/47 99 12/01/16 22:20 97 18 100/55 98 Room Air 12/01/16 21:00 101 16 150/71 97 Room Air 12/01/16 20:45 98 12/01/16 20:00 108 16 107/66 97 Room Air 12/01/16 18:00 105 16 144/64 98 Room Air 12/01/16 16:30 107 18 125/58 97 Room Air 12/01/16 15:30 137 18 102/58 97 Room Air Physical Exam GENERAL: Middle aged female, thin SKIN: Warm and dry. HEAD: Atraumatic. Normocephalic. EYES: Pupils equal and round. No scleral icterus. No injection or drainage. ENT: No nasal bleeding or discharge. Mucous membranes pink and moist. NECK: Trachea midline. No JVD. CARDIOVASCULAR: Regular rhythm, tachycardia RESPIRATORY: No accessory muscle use. Breath sounds equal bilaterally. Rhonchi GASTROINTESTINAL: Abdomen soft, non-tender, nondistended. MUSCULOSKELETAL: Extremities without clubbing, cyanosis, or edema. No obvious deformities. NEUROLOGICAL: Awake and alert. No obvious cranial nerve deficits. Motor grossly within normal limits. Five out of 5 muscle strength in the arms and legs. Normal speech. PSYCHIATRIC: Appropriate mood and affect; insight and judgment normal. Laboratory Laboratory Tests Test 12/01/16 12/01/16 12/02/16 15:35 16:30 06:31 White Blood Count 12.5 8.5 Red Blood Count 4.29 3.78 Hemoglobin 11.6 10.4 Hematocrit 35.4 31.2 Mean Corpuscular Volume 82.5 82.7 Mean Corpuscular Hemoglobin 27.1 27.6 Mean Corpuscular Hemoglobin 32.8 33.4 Concent Red Cell Distribution Width 12.8 12.9 Platelet Count 368 305 Mean Platelet Volume 8.2 8.2 Neutrophils (%) (Auto) 72.2 91.2 Lymphocytes (%) (Auto) 18.3 6.8 Monocytes (%) (Auto) 8.3 2.0 Eosinophils (%) (Auto) 0.8 0.0 Basophils (%) (Auto) 0.4 0.0 Neutrophils # (Auto) 9.1 7.8 Lymphocytes # (Auto) 2.3 0.6 Monocytes # (Auto) 1.0 0.2 Eosinophils # (Auto) 0.1 0.0 Basophils # (Auto) 0.0 0.0 CBC Comment DIFF FINAL DIFF FINAL Differential Comment Prothrombin Time 10.9 Prothromb Time International 1.0 Ratio Activated Partial 28.7 Thromboplast Time Sodium Level 135 135 Potassium Level 4.2 4.3 Chloride Level 96 100 Carbon Dioxide Level 26.9 26.8 Anion Gap 12 8 Blood Urea Nitrogen 9 10 Creatinine 0.61 0.65 Estimat Glomerular Filtration 96 90 Rate Random Glucose 131 224 Lactic Acid Level 2.0 Calcium Level 9.4 8.7 Magnesium Level 1.6 Total Bilirubin 0.3 Aspartate Amino Transf 11 (AST/SGOT) Alanine Aminotransferase 19 (ALT/SGPT) Alkaline Phosphatase 72 Total Creatine Kinase 29 Troponin I LESS THAN 0.02 Total Protein 7.8 Albumin 3.2 Urine Color YELLOW Urine Turbidity CLEAR Urine pH 6.0 Urine Specific [place] 1.008 Urine Protein NEG Urine Glucose (UA) NEG Urine Ketones NEG Urine Occult Blood TRACE Urine Nitrite NEG Urine Bilirubin NEG Urine Urobilinogen LESS THAN 2.0 Urine Leukocyte Esterase LARGE Urine RBC 7 Urine WBC 27 Urine Squamous Epithelial 2 Cells Urine Bacteria RARE Urine Mucus FEW Microscopic Urinalysis Comment CATH-CULTURE IND Date/Time Procedure Status Source Growth 12/01/16 16:30 Urine Culture Received Urine Catheterized Urine Pending 12/01/16 16:30 Legionella Antigen - Final Complete Urine Random Urine PRESUMPTIVE NEGATIVE FOR LEGIONELLA P... 12/01/16 16:30 Streptococcus pneumoniae Antigen (M - Final Complete Urine Random Urine PRESUMPTIVE NEGATIVE FOR STREPTOCOCCU... 12/01/16 15:55 Influenza Types A,B Antigen (SANTOS) - Final Complete Nasal Washing NEGATIVE FOR FLU A AND B ANTIGEN.... 12/01/16 15:35 Aerobic Blood Culture - Preliminary Resulted Blood Peripheral NO GROWTH IN 1 DAY 12/01/16 15:35 Anaerobic Blood Culture - Preliminary Resulted Blood Peripheral NO GROWTH IN 1 DAY Result Diagram: 12/02/16 0631 12/02/16 0631 Imaging Last 72 hours Impressions Chest X-Ray 12/01/16 1449 Signed Impressions: Service Date/Time: Thursday, December 01, 2016 14:55 - CONCLUSION: Right basilar opacity characteristic of developing airspace disease. COPD. Brian Alanis MD Assessment and Plan Assessment and Plan Assessment: Narrow complex tachycardia on admission, afib vs atrial tachycardia. Likely due to dehydration from diarrhea. Patient also appears to have pneumonia and UTI Atrial fibrillation history with recently ablation at [facility]. On Sotalol and Eliquis. Recent discontinued cardizem and digoxin HLD Bronchiectasis Plan: Continue to monitor carefully. Tachycardia secondary to dehydration and infection. Continue Sotalol, Cardizem and Eliquis Patient seen and evaluated by Dr Smith. Theresa Meeks Dec 02, 2016 14:13
[2016-12-02] MEDS ORDERED: LEVOFLOXACIN 750 MG PREMIX INJ 150 ML IV SCH (16:00)
[2016-12-02] MEDS: guaiFENesin/CODEINE SYRUP 200 MG/20 MG/10 ML CUP PO PRN (18:00)
--- NOTE | 2016-12-02 20:36 | EKG ---
Date Performed: 12/01/2016 Time Performed: 15:24:13 PTAGE: 71 years EKG: ATRIAL FLUTTER/TACHYCARDIA WITH RAPID VENTRICULAR RESPONSE ABNORMAL RHYTHM ECG PREVIOUS TRACING : 11/10/2016 18.43 Compared to the previous tracing, SR no longer present DOCTOR: Kirk Gan Interpretating Date/Time 12/02/2016 20:35:19
[2016-12-02] MEDS ORDERED: metFORMIN HCL 500 MG TAB PO SCH (21:00)
[2016-12-03] MEDS: guaiFENesin/CODEINE SYRUP 200 MG/20 MG/10 ML CUP PO PRN ×2 (00:03→09:50)
[2016-12-03] MEDS: metFORMIN HCL 500 MG TAB PO SCH ×2 (00:04→09:18)
[2016-12-03 00:10] VITALS: BP 103/52; PULSE 100; RESP 18; TEMP 98.4; O2SAT 97
[2016-12-03 04:40] VITALS: BP 94/53; PULSE 88; RESP 18; TEMP 97.9; O2SAT 95
[2016-12-03 06:17] LABS: MEAN CELL VOLUME 82.7 FL (80.0-100.0); MEAN CORPUSCULAR HEMOGLOBIN 27.7 PG (27.0-34.0); MEAN CORPUSCULAR HGB CONC 33.6 % (32.0-36.0); PLATELET COUNT 309 TH/MM3 (150-450); RED BLOOD COUNT 3.63 MIL/MM3 (4.00-5.30); RED CELL DISTRIBUTION WIDTH 12.8 % (11.6-17.2); REVIEW FLAG FINAL; WHITE BLOOD COUNT 14.7 TH/MM3 (4.0-11.0)
[2016-12-03 06:40] LABS: BICARBONATE 24.3 MEQ/L (21.0-32.0); POTASSIUM 4.1 MEQ/L (3.5-5.1)
[2016-12-03] MEDS: RESP: ALBUTEROL 2.5 MG/IPRATROPIUM 0.5 MG NEB (SCH) INH ×2 (07:36→11:17)
[2016-12-03 08:10] VITALS: PULSE 82
[2016-12-03] MEDS: APIXABAN 5 MG TABLET PO SCH (09:18)
[2016-12-03] MEDS: SODIUM CHLORIDE 0.9% FLUSH 5 ML FLUSH IV FLUSH SCH (09:19)
[2016-12-03] MEDS: methylPREDNISolone SOD SUCC 40 MG/1 ML VIAL IV SCH (09:19)
[2016-12-03] MEDS: DILTIAZEM HCL 30 MG TAB PO SCH (09:50)
[2016-12-03] MEDS: SOTALOL HCL 80 MG TAB PO SCH (09:50)
--- NOTE | 2016-12-03 09:56 | MB ---
cc: Bita SANCHEZ DATE OF CONSULTATION 12/03/2016 HISTORY Ms. Hall is a 71-year-old white female whom I have followed since May of 2015 with bronchiectasis and COPD. She was formerly exposed to secondhand smoke for about 30 years, did not smoke herself personally. Our last office visit was in August at which time things were fairly stable on a rotation of Bactrim and doxycycline every other month. She has grown Pseudomonas in the past as well as E-coli most recently in July. She has also had several sputums done for AFB and they are negative. Her last CT scan was in July at which time she had bilateral bronchiectasis primarily in the bases, nothing new or different when compared to previous. She has had some calcified hilar lymph nodes as well, probably due to old infections. She presented to the hospital yesterday with increasing cough and congestion. She had an ablation in October at the [facility] at which time she had a cough and congestion but did not feel ill. Her daughter came down to visit her and insisted that she come to the hospital because the cough was getting worse. She has had no hemoptysis. She did have a fever at one point as high as 103 and at that point, when she had the temperature of 103, she was prescribed doxycycline. It caused diarrhea. When she had a recurrent fever and the cough persisted, she had a second round of doxycycline and the diarrhea continued. Her daughter also felt she was probably dehydrated, she was weak and more short of breath, so again was brought into the ER. Initial chest x-ray reveals an increase in infiltrate at the right base. She has been rehydrated and 24 hours later she is feeling better. She had no hemoptysis. The fever has not recurred. She has had no swelling in her legs. No nausea or vomiting. She has not had diarrhea yet in the hospital although that had been going on for at least two weeks. PAST MEDICAL HISTORY 1. Atrial fibrillation, recent ablation at the [facility]. 2. Type 2 diabetes. 3. Mitral valve prolapse. 4. History of chronic sinus disease. PAST SURGICAL HISTORY 1. Previous appendectomy. 2. Left hip surgery. 3. Breast augmentation in the past. ALLERGIES None known. MEDICATIONS Reviewed in the EMR. FAMILY HISTORY Father unknown. Mother of natural causes in her 90s. She has two children in good health. Her daughter is here at the hospital with her. SOCIAL HISTORY . Lives alone, manages her own affairs. Originally from [place] and still spends several months a year there. 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 Secondhand smoke exposure alone. Rare alcohol use. No unusual animal exposures. REVIEW OF SYSTEMS As noted above. PHYSICAL EXAMINATION VITAL SIGNS: 144/64, pulse 100, respirations 18, sat 98% on room air. HEENT: Sclerae anicteric. NECK: Neck veins are flat. No adenopathy in the neck or supraclavicular region. CHEST: Reveals some basilar congestion with rales but no wheezes. HEART: Regular rhythm. No harsh murmur. ABDOMEN: Soft. EXTREMITIES: No edema or cyanosis. CHEST X-RAY As noted above. LABORATORY DATA Electrolytes are normal. White count is 12,000, hemoglobin 11.6. Influenza nasal wash negative. Blood cultures initially negative. DISCUSSION Ms. Hall presents with what appears to be a right lower lobe infiltrate superimposed on her COPD and bronchiectasis. She was also probably dehydrated on presentation after a couple of weeks of diarrhea. She is feeling better. We will try to collect a sputum, continue the current regimen. Monitor her over the next 24-48 hours and then obtained a followup chest x-ray. Further diagnostic and/or therapeutic intervention will depend on the results of these studies and her ongoing clinical course. R. MD MONCHO Basurto/[place] /9:32 AM /9:43 AM
[2016-12-03 11:14] VITALS: BP 129/60
[2016-12-03] MEDS ORDERED: GUAI100S5 PO (13:03)
[2016-12-03 13:05] LABS: C. DIFF EPI 027 PRESUMPTIVE NEGATIVE (NEGATIVE); C. DIFF TOXIN PCR NEGATIVE (NEGATIVE)
[2016-12-03] MEDS ORDERED: LEVA750T PO (13:05)
[2016-12-03] MEDS ORDERED: PRED5PAK PO (13:05)
--- NOTE | 2016-12-03 13:09 | HHI.FF ---
Face to Face Verification Diagnosis: (1) Pneumonia (2) Dehydration (3) Atrial flutter with rapid ventricular response Home Health Nursing Order: Medical education Signs/symptoms of disease process Diabetic education Nursing assessment with vital signs I have seen patient Christina Hall on 12/03/16. My clinical findings support the need for the requested home health care services because: Patient has SOB Limited ability to care for self Need for psychosocial assistance Infection w/ risk of complications I certify that my clinical findings support that this patient is homebound because: Hx COPD- exertion dyspnea/weakness Unsafe to leave home unassisted Need for psychosocial assistance Unable to use public transportation Robe Stallworth DO Dec 03, 2016 1:09 pm
--- NOTE | 2016-12-03 13:09 | HHI.PR ---
Subjective Remarks Follow up for pneumonia. Ms. Hall is doing well. No acute concerns. Denies any CP, SOB, fever, chills. Tolerating diet well. Daughter at bedside. Objective Vitals Vital Signs Date Time Temp Pulse Resp B/P Pulse Ox O2 Delivery O2 Flow Rate FiO2 12/03/16 11:14 129/60 12/03/16 09:20 Room Air 12/03/16 08:10 82 12/03/16 04:40 97.9 88 18 94/53 95 12/03/16 00:10 98.4 100 18 103/52 97 12/02/16 22:07 Room Air 12/02/16 21:36 103 12/02/16 21:30 98.1 107 18 103/55 96 12/02/16 16:00 98.0 104 20 106/55 95 I/O 12/02/16 12/02/16 12/02/16 12/03/16 12/03/16 12/03/16 07:00 15:00 23:00 07:00 15:00 23:00 Intake Total 360 ml 600 ml 480 ml 120 ml Output Total 600 ml 900 ml 150 ml 750 ml Balance -240 ml -300 ml 330 ml -630 ml Intake Oral 360 ml 600 ml 480 ml 120 ml Output Urine Total 600 ml 900 ml 150 ml 750 ml # Bowel Movements 0 0 0 Result Diagram: 12/03/16 0549 12/03/16 0549 Imaging Last Impressions Chest X-Ray 12/01/16 1449 Signed Impressions: Service Date/Time: Thursday, December 01, 2016 14:55 - CONCLUSION: Right basilar opacity characteristic of developing airspace disease. COPD. Brian Alanis MD Objective Remarks GENERAL: AOX, NAD. SKIN: Warm and dry. HEAD: Normocephalic. EYES: No scleral icterus. No injection or drainage. NECK: Supple, trachea midline. No JVD or lymphadenopathy. CARDIOVASCULAR: Regular rate and rhythm without murmurs, gallops, or rubs. RESPIRATORY: Breath sounds equal bilaterally. No accessory muscle use. No appreciable wheezing. GASTROINTESTINAL: Abdomen soft, non-tender, nondistended. MUSCULOSKELETAL: No cyanosis, or edema. BACK: Nontender without obvious deformity. No CVA tenderness. Procedures None. A/P Problem List: (1) Pneumonia ICD Code: J18.9 Status: Acute (2) UTI (urinary tract infection) ICD Code: N39.0 Status: Acute (3) Atrial fibrillation with tachycardic ventricular rate ICD Code: I48.91 Status: Acute (4) Dehydration ICD Code: E86.0 Status: Acute Assessment and Plan 71-year-old female with Pneumonia/Bronchiectasis: Patient with known history of bronchiectasis, chronic cough. Has been on and off antibiotics Bactrim and doxycycline outpatient. - Continue Levaquin. Blood cultures pending - Scheduled breathing treatments, incentive spirometry. Robitussin for cough. - Discussed with Dr. Fang Cui who recommended 7 days of Levaquin and outpatient follow up. Dr. Cui will repeat CXR as needed. A. fib with RVR on presentation: The patient's heart rate has since come down with IV fluid. She recently had a cardiac ablation at the [facility] in October. She normally takes sotalol and Cardizem. She reports having hypotensive episodes with Cardizem recently. She has been in contact with her blueprint assembler at the [facility] where advised her to come to the ER. - Rate now controlled but episodes of borderline low BP, she reports lightheadedness with getting up. We'll continue sotalol and Cardizem, home dose. - Consult the patient's local blueprint assembler, Dr. Smith to adjust rate control medications if indicated. - Continue Eliquis Urinary tract infection: Abnormal urinalysis. - Patient on Levaquin as above. Follow urine cultures. Dehydration/hyponatremia: Improved with IVF. Encourage oral hydration. Diabetes: Continue Metformin. Diabetic diet. DVT PPx: Patient on Eliquis. Discharge patient to home with home health Condition on discharge: Improved Diabetic Diet as tolerated Ad Ashley activity Rx written: - Robitussin AC - Levaquin 750mg Qday x 7 days - Prednisone dose teodoro. Follow-up with primary care physician within one week and Dr. Fang Cui within one week. Problem Qualifiers (1) Pneumonia: Qualified Code: J18.1 - Pneumonia of right lower lobe due to infectious organism (2) UTI (urinary tract infection): Qualified Code: N39.0 - Urinary tract infection without hematuria, site unspecified Robe Satllworth DO Dec 03, 2016 13:08
[2017-04-21] MEDS ORDERED: SM M250T PO (19:48)
[2017-04-21] MEDS ORDERED: PROB1CAP12 PO (19:52)
[2017-04-21] MEDS ORDERED: IPRA0.02 NEB (19:52)
[2017-04-21] MEDS ORDERED: SODI7NEB3 NEB (19:52)
[2017-04-21] MEDS ORDERED: AMBI5TAB PO (19:52)
[2017-04-21] MEDS ORDERED: MULT1TAB PO (19:52)
[2017-05-01] MEDS ORDERED: METO50TA PO (08:31)
== END 2016-12-03 14:38 | disposition home health service (06) | DRG 190 ==
LOC: NEPA 13:04 → NEDA 17:15 → NEDH 22:15 → N04A 23:54
PROVIDERS: ADMIT Hospitalist; ATTEND Hospitalist
DX: J44.0 Chronic obstructive pulmonary disease with (acute) lower respiratory infection (principal); J18.9 Pneumonia, unspecified organism; N39.0 Urinary tract infection, site not specified; I48.91 Unspecified atrial fibrillation; E11.9 Type 2 diabetes mellitus without complications; E87.1 Hypo-osmolality and hyponatremia; I34.1 Nonrheumatic mitral (valve) prolapse; I10 Essential (primary) hypertension; J47.9 Bronchiectasis, uncomplicated; E78.5 Hyperlipidemia, unspecified; E86.0 Dehydration; R19.7 Diarrhea, unspecified; F32.9 Major depressive disorder, single episode, unspecified; Z77.22 Contact with and (suspected) exposure to environmental tobacco smoke (acute) (chronic); Z79.1 Long term (current) use of non-steroidal anti-inflammatories (NSAID); Z79.84 Long term (current) use of oral hypoglycemic drugs; Z88.2 Allergy status to sulfonamides; Z96.642 Presence of left artificial hip joint
CPT/HCPCS: 71010; 80048; 80053; 81001; 82550; 83605; 83735; 84484; 85025; 85027; 85610; 85730; 87040; 87070; 87077; 87086; 87186; 87205; 87449; 87493; 87804; 93005; 94150; 94640; 94664; 96361; 96365; J1956; J2920; J3480; J7040

== ENCOUNTER → 2017-01-18 | Outpatient (CLI) | payer MEDICARE, OTHER ==
[~2017-01-18] MED LIST changes: +AMBI5TAB PO; +APIX5TAB PO; -CEFT500T3 PO; +DILT31TA PO; +GUAI100S5 PO; +IPRA0.02 NEB; +LEVA750T PO; +METO25TA3 PO; +METO50TA PO; -MUCI30TA2 PO; +MULT1TAB PO; +PRED5PAK PO; +PROB1CAP12 PO; +PROT40TA PO; +SM M250T PO; +SODI7NEB3 NEB
[2017-01-18 11:11] LABS: HEMATOCRIT 32.7 % (35.0-46.0); MEAN CELL VOLUME 81.4 FL (80.0-100.0); MEAN CORPUSCULAR HEMOGLOBIN 27.5 PG (27.0-34.0); MEAN CORPUSCULAR HGB CONC 33.7 % (32.0-36.0); PLATELET COUNT 308 TH/MM3 (150-450); RED BLOOD COUNT 4.01 MIL/MM3 (4.00-5.30); RED CELL DISTRIBUTION WIDTH 13.8 % (11.6-17.2); REVIEW FLAG FINAL; WHITE BLOOD COUNT 6.5 TH/MM3 (4.0-11.0)
[2017-01-18 11:39] LABS: ANION GAP 7 MEQ/L (5-15); AST (GOT) 9 U/L (15-37); BICARBONATE 32.5 MEQ/L (21.0-32.0); BLOOD UREA NITROGEN 9 MG/DL (7-18); CHLORIDE 99 MEQ/L (98-107); GLOMERULAR FILTRATION RATE 116 ML/MIN (>89); GLUCOSE,FASTING 99 MG/DL (74-99); POTASSIUM 4.1 MEQ/L (3.5-5.1); SODIUM (NA) 138 MEQ/L (136-145)
[2017-01-18 11:51] LABS: ALKALINE PHOSPHATASE 72 U/L (45-117); ALT (GPT) 12 U/L (10-53); FREE T4 1.16 NG/DL (0.76-1.46); TOTAL BILIRUBIN ADULT 0.3 MG/DL (0.2-1.0)
== END ==
LOC: PLAB 09:10
PROVIDERS: ATTEND Family Medicine
DX: E78.2 Mixed hyperlipidemia (principal); I10 Essential (primary) hypertension; R94.5 Abnormal results of liver function studies; R53.83 Other fatigue; E03.9 Hypothyroidism, unspecified
CPT/HCPCS: 36415; 80053; 84439; 84443; 85027

== ENCOUNTER 2017-04-21 17:34 | Emergency (ER) | payer MEDICARE, OTHER ==
[~2017-04-21] VITALS: Ht 172.7 cm; Wt 66.5 kg
[~2017-04-21 17:34] MED LIST changes: -AMBI5TAB PO; -IPRA0.02 NEB; -METO25TA3 PO; -METO50TA PO; -MULT1TAB PO; -PROB1CAP12 PO; -PROT40TA PO; -SM M250T PO; -SODI7NEB3 NEB
[2017-04-21 17:35] VITALS: BP 137/75; PULSE 101; RESP 18; TEMP 97.6; O2SAT 98
[2017-04-21] MEDS ORDERED: METOPROLOL TARTRATE 25 MG TAB PO ONE (18:00)
[2017-04-21] MEDS ORDERED: SODIUM CHLORIDE 0.9% FLUSH 10 ML FLUSH IVF PRN (18:00)
--- NOTE | 2017-04-21 18:17 | PD ---
HPI Chief Complaint: Cardiac Complaint Time Seen by Provider: 17:53 Travel History International Travel<30 days: No Contact w/Intl Traveler<30days: No Traveled to known affect area: No History of Present Illness HPI 71-year-old female presents with intermittent tachycardia and shortness of breath with exertion. She states she has history of atrial fibrillation and takes metoprolol 25 mg 3 times a day. She states she has not taken her evening dose yet. She states Dr. Smith is her check inspector. She states that she has had an ablation with him before. Quality is tachycardia. Severity is intermittent. She denies any current symptoms. She feels worse when she moves around. She denies other modifying factors. PFSH Past Medical History Hx Anticoagulant Therapy: Yes (ELOQUIS) Arthritis: Yes Atrial Fibrillation: Yes Depression: Yes Heart Rhythm Problems: Yes (AFIB/AFLUTTER) Cancer: Yes (SKIN CA) Cardiovascular Problems: Yes (ABLATION) High Cholesterol: Yes COPD: Yes Diabetes: Yes (TYPE 2) Patient Takes Glucophage: Yes Diminished Hearing: No Endocrine: Yes Genitourinary: No Hepatitis: No Hiatal Hernia: No Hypertension: Yes Immune Disorder: No Musculoskeletal: Yes (OSTEOARTHRITIS IN NECK) Neurologic: No Psychiatric: No Reproductive: No Respiratory: Yes (BRONCHIECTASIS) Thyroid Disease: No Tetanus Vaccination: Unknown Influenza Vaccination: Yes Menopausal: Yes Tubal Ligation: Yes Past Surgical History Abdominal Surgery: Yes (APPENDECTOMY) AICD: No Appendectomy: Yes Cardiac Surgery: Yes (ATRIAL ABLATION) Ear Surgery: No Endocrine Surgery: No Eye Surgery: Yes (CATARACTS REMOVAL WITH LENSE IMPLANTS) Genitourinary Surgery: No Gynecologic Surgery: Yes (BILATERAL TUBAL LIGATION) Joint Replacement: Yes (LEFT HIP) Oral Surgery: No Pacemaker: No Thoracic Surgery: Yes (BREAST AUGMENTATION) Other Surgery: Yes (RECTAL FISTULA REPAIR, BREAST AUGMENTATION, SINUS SURGERY ) Social History Alcohol Use: No Tobacco Use: No Substance Use: No Allergies-Medications (Allergen,Severity, Reaction): Coded Allergies: Bactrim (Verified Allergy, Intermediate, Nausea/Vomiting, 12/01/16) Sulfa (Verified Allergy, Intermediate, Nausea/Vomiting, 12/01/16) *MDRO Multi-Drug Resistant Organism (Unverified Allergy, Unknown, 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 Reported Meds & Prescriptions Reported Meds & Active Scripts Active Prednisone (21) 5 mg tab Dose Pack (Prednisone) 5 Mg Dspk 5 Mg PO DIRECTED Levaquin (Levofloxacin) 750 Mg Tab 750 Mg PO DAILY Okay to take Levaquin for 5 days while on Sotalol. QTC 415 ms. Guaifenesin-Codeine Liq 100-10 Mg/5 Ml Soln 10 Ml PO Q4H PRN 30 Days Reported Eliquis (Apixaban) 5 Mg Tab 5 Mg PO BID Cardizem (Diltiazem HCl) 30 Mg Tab 30 Mg PO BID Sotalol (Sotalol HCl) 120 Mg Tab 120 Mg PO BID Pravastatin 40 Mg Tab 40 Mg PO AC DINNER Metformin ER (Metformin HCl) 1,000 Mg Nasreen 1,000 Mg PO AC DINNER With evening meal Review of Systems Except as stated in HPI: all other systems reviewed are Neg Physical Exam Narrative GENERAL: Well-nourished, well-developed patient. Well-appearing SKIN: Warm and dry. HEAD: Normocephalic and atraumatic. EYES: No injection or drainage. ENT: No nasal drainage noted. NECK: Supple, trachea midline. CARDIOVASCULAR: irregular rate and rhythm while I was examining patient she went into A. fib with RVR RESPIRATORY: Breath sounds equal bilaterally. No accessory muscle use. GASTROINTESTINAL: Abdomen soft, non-tender, nondistended. NEUROLOGICAL: Awake and alert. Moves all extremities. Normal speech. Data Data Last Documented VS Vital Signs Date Time Temp Pulse Resp B/P Pulse Ox O2 Delivery O2 Flow Rate FiO2 04/21/17 17:52 117 18 97 Room Air 04/21/17 17:35 97.6 137/75 Orders Complete Blood Count With Diff (04/21/17 17:59) Comprehensive Metabolic Panel (04/21/17 17:59) B-Type Natriuretic Peptide (04/21/17 17:59) Act Partial Throm Time (Ptt) (04/21/17 17:59) Prothrombin Time / Inr (Pt) (04/21/17 17:59) Magnesium (Mg) (04/21/17 17:59) Ckmb (Isoenzyme) Profile (04/21/17 17:59) Troponin I (04/21/17 17:59) Iv Access Insert/Monitor (04/21/17 17:59) Electrocardiogram (04/21/17 17:59) Ecg Monitoring (04/21/17 17:59) Oximetry (04/21/17 17:59) Chest, Single Ap (04/21/17 17:59) Sodium Chloride 0.9% Flush (Ns Flush) (04/21/17 18:00) Metoprolol Tartrate (Lopressor) (04/21/17 18:00) Labs Laboratory Tests Test 04/21/17 18:20 White Blood Count 6.7 TH/MM3 Red Blood Count 4.38 MIL/MM3 Hemoglobin 12.0 GM/DL Hematocrit 35.2 % Mean Corpuscular Volume 80.3 FL Mean Corpuscular Hemoglobin 27.4 PG Mean Corpuscular Hemoglobin 34.1 % Concent Red Cell Distribution Width 14.1 % Platelet Count 237 TH/MM3 Mean Platelet Volume 8.7 FL Neutrophils (%) (Auto) 52.5 % Lymphocytes (%) (Auto) 34.7 % Monocytes (%) (Auto) 10.2 % Eosinophils (%) (Auto) 2.2 % Basophils (%) (Auto) 0.4 % Neutrophils # (Auto) 3.5 TH/MM3 Lymphocytes # (Auto) 2.3 TH/MM3 Monocytes # (Auto) 0.7 TH/MM3 Eosinophils # (Auto) 0.1 TH/MM3 Basophils # (Auto) 0.0 TH/MM3 CBC Comment DIFF FINAL Differential Comment MDM Medical Decision Making Medical Screen Exam Complete: Yes Emergency Medical Condition: Yes Medical Record Reviewed: Yes (past history confirmed) Interpretation(s) EKG #1 shows NSR, no ST elevation or depression, and no arrhythmias. No significant T-wave inversions. EKG #2 is atrial fibrillation at [address] segment elevation or depression or consecutive T-wave inversion Differential Diagnosis A flutter, A. fib, SVT, electrolyte abnormality Narrative Course Will check blood work, EKG, chest x-ray and monitor Now in A. fib with RVR will dose with hold metoprolol and monitor Physician Communication Physician Communication dr giles to follow labs and reeval Norma Camarillo MD Apr 21, 2017 18:17
[2017-04-21 18:37] LABS: AUTOMATED NEUTROPHIL # 3.5 TH/MM3 (1.8-7.7); BASOPHIL % 0.4 % (0.0-2.0); EOSINOPHIL # 0.1 TH/MM3 (0-0.4); EOSINOPHIL % 2.2 % (0.0-4.0); HEMATOCRIT 35.2 % (35.0-46.0); HEMO FLAGS DIFF FINAL; LYMPH % 34.7 % (9.0-44.0); LYMPHOCYTE # 2.3 TH/MM3 (1.0-4.8); MEAN CELL VOLUME 80.3 FL (80.0-100.0); MEAN CORPUSCULAR HEMOGLOBIN 27.4 PG (27.0-34.0); MEAN CORPUSCULAR HGB CONC 34.1 % (32.0-36.0); MONO % 10.2 % (0.0-8.0); NEUT % 52.5 % (16.0-70.0); PLATELET COUNT 237 TH/MM3 (150-450); RED BLOOD COUNT 4.38 MIL/MM3 (4.00-5.30); RED CELL DISTRIBUTION WIDTH 14.1 % (11.6-17.2); WHITE BLOOD COUNT 6.7 TH/MM3 (4.0-11.0)
--- NOTE | 2017-04-21 18:39 | RADRPT ---
EXAM DATE/TIME: 04/21/2017 18:16 [place] COMPARISON: CHEST SINGLE AP, December 01, 2016, 14:55. INDICATIONS : Shortness of breath and tachycardia. MEDICAL HISTORY : Chronic obstructive pulmonary disease. A-fib. SURGICAL HISTORY : None. ENCOUNTER: Initial ACUITY: 1 day PAIN SCORE: 0/10 LOCATION: chest FINDINGS: A single view of the chest demonstrates the lungs to be symmetrically hyperinflated without evidence of mass, infiltrate or effusion. Previously noted opacity at the right lung base is no longer visuali zed. The cardiomediastinal contours are unremarkable. Osseous structures are intact. CONCLUSION: No acute disease. Charles Lakhani MD on April 21, 2017 at 18:37 Board Certified Radiologist. This report was verified electronically.
[2017-04-21 18:58] LABS: APTT (PATIENT) 27.3 SEC (24.3-30.1); PROTHROMBIN TIME - PATIENT 10.9 SEC (9.8-11.6)
[2017-04-21 18:59] LABS: ANION GAP 7 MEQ/L (5-15); AST (GOT) 13 U/L (15-37); BICARBONATE 30.9 MEQ/L (21.0-32.0); BLOOD UREA NITROGEN 13 MG/DL (7-18); CHLORIDE 99 MEQ/L (98-107); GLOMERULAR FILTRATION RATE 78 ML/MIN (>89); MAGNESIUM 1.7 MG/DL (1.5-2.5); SODIUM (NA) 137 MEQ/L (136-145)
[2017-04-21 19:00] LABS: ALT (GPT) 18 U/L (10-53)
[2017-04-21 19:04] LABS: ALKALINE PHOSPHATASE 59 U/L (45-117); CREATINE KINASE 79 U/L (26-192); TOTAL BILIRUBIN ADULT 0.4 MG/DL (0.2-1.0)
--- NOTE | 2017-04-21 19:09 | PD ---
Physical Exam Narrative Received sign out from previous provider to follow up labs and reevaluate. 71yo F with PMH of afib on metoprol 25mg TID here because her heart rate was in the 140s and 150s today and she called her federal mediator Dr. Smith's office and spoke to his nurse who told her to come in with her heart rate was high. When she got here, she was initially sinus 87bpm and then was in afib RVR 134bpm. When I went to evaluate the patient, she was initially sinus in the 80s and then went to afib in the 110s-120s. She is waiting for her metoprolol 25mg PO that was ordered by the previous team. Denies any chest pain, sob, n/v , abdominal pain, focal weakness or numbness. Pt takes eliquis. Pt was waiting for the metoprolol and there was a delay in getting the medication to her so she took her own metoprolol 25mg PO. Pt has been observed in the ED since the metoprolol and her heart rate has been in the 80s. No chest pain or sob. Pt has good follow up with Dr. Smith and can follow up as outpatient. Labs reviewed, no leukocytosis. Troponin negative. BNP 93. CXR negative. Return precautions given. Data Data Last Documented VS Vital Signs Date Time Temp Pulse Resp B/P Pulse Ox O2 Delivery O2 Flow Rate FiO2 04/21/17 21:05 85 16 152/74 99 Room Air 04/21/17 17:35 97.6 Orders Complete Blood Count With Diff (04/21/17 17:59) Comprehensive Metabolic Panel (04/21/17 17:59) B-Type Natriuretic Peptide (04/21/17 17:59) Act Partial Throm Time (Ptt) (04/21/17 17:59) Prothrombin Time / Inr (Pt) (04/21/17 17:59) Magnesium (Mg) (04/21/17 17:59) Ckmb (Isoenzyme) Profile (04/21/17 17:59) Troponin I (04/21/17 17:59) Iv Access Insert/Monitor (04/21/17 17:59) Electrocardiogram (04/21/17 17:59) Ecg Monitoring (04/21/17 17:59) Oximetry (04/21/17 17:59) Chest, Single Ap (04/21/17 17:59) Sodium Chloride 0.9% Flush (Ns Flush) (04/21/17 18:00) Metoprolol Tartrate (Lopressor) (04/21/17 18:00) Labs Laboratory Tests Test 04/21/17 18:20 White Blood Count 6.7 TH/MM3 Red Blood Count 4.38 MIL/MM3 Hemoglobin 12.0 GM/DL Hematocrit 35.2 % Mean Corpuscular Volume 80.3 FL Mean Corpuscular Hemoglobin 27.4 PG Mean Corpuscular Hemoglobin 34.1 % Concent Red Cell Distribution Width 14.1 % Platelet Count 237 TH/MM3 Mean Platelet Volume 8.7 FL Neutrophils (%) (Auto) 52.5 % Lymphocytes (%) (Auto) 34.7 % Monocytes (%) (Auto) 10.2 % Eosinophils (%) (Auto) 2.2 % Basophils (%) (Auto) 0.4 % Neutrophils # (Auto) 3.5 TH/MM3 Lymphocytes # (Auto) 2.3 TH/MM3 Monocytes # (Auto) 0.7 TH/MM3 Eosinophils # (Auto) 0.1 TH/MM3 Basophils # (Auto) 0.0 TH/MM3 CBC Comment DIFF FINAL Differential Comment Prothrombin Time 10.9 SEC Prothromb Time International 1.0 RATIO Ratio Activated Partial 27.3 SEC Thromboplast Time Sodium Level 137 MEQ/L Potassium Level 4.0 MEQ/L Chloride Level 99 MEQ/L Carbon Dioxide Level 30.9 MEQ/L Anion Gap 7 MEQ/L Blood Urea Nitrogen 13 MG/DL Creatinine 0.73 MG/DL Estimat Glomerular Filtration 78 ML/MIN Rate Random Glucose 100 MG/DL Calcium Level 9.2 MG/DL Magnesium Level 1.7 MG/DL Total Bilirubin 0.4 MG/DL Aspartate Amino Transf 13 U/L (AST/SGOT) Alanine Aminotransferase 18 U/L (ALT/SGPT) Alkaline Phosphatase 59 U/L Total Creatine Kinase 79 U/L Troponin I LESS THAN 0.02 NG/ML B-Type Natriuretic Peptide 93 PG/ML Total Protein 7.4 GM/DL Albumin 4.0 GM/DL MDM Supervised Visit with BETTY: No Interpretation(s) Vital Signs Date Time Temp Pulse Resp B/P Pulse Ox O2 Delivery O2 Flow Rate FiO2 04/21/17 21:05 85 16 152/74 99 Room Air 04/21/17 20:00 75 16 148/78 100 Room Air 04/21/17 17:52 117 18 97 Room Air 04/21/17 17:35 97.6 101 18 137/75 98 Room Air Diagnosis Primary Impression: Atrial flutter with rapid ventricular response Patient Instructions: General Instructions Departure Forms: Tests/Procedures Additional Instruction: Please follow up with Dr. Smith as outpatient in 1-2 days. Return to the ED if symptoms worsen. Continue to take your metoprolol as instructed. Med/Other Pt SpecificInfo: No Change to Meds Disposition: 01 DISCHARGE HOME Condition: Stable Samantha Taylor DO Apr 21, 2017 19:09
[2017-04-21] MEDS ORDERED: METO25TA3 PO (19:48)
[2017-04-21] MEDS ORDERED: SM M250T PO ×2 (19:48)
[2017-04-21] MEDS ORDERED: IPRA0.02 NEB ×2 (19:52)
[2017-04-21] MEDS ORDERED: AMBI5TAB PO ×2 (19:52)
[2017-04-21] MEDS ORDERED: SODI7NEB3 NEB ×2 (19:52)
[2017-04-21] MEDS ORDERED: PROB1CAP12 PO ×2 (19:52)
[2017-04-21] MEDS ORDERED: MULT1TAB PO ×2 (19:52)
[2017-04-21 20:00] VITALS: BP 148/78; PULSE 75; RESP 16; O2SAT 100
[2017-04-21 21:05] VITALS: BP 152/74; PULSE 85; RESP 16; O2SAT 99
--- NOTE | 2017-04-22 14:37 | EKG ---
Date Performed: 04/21/2017 Time Performed: 18:01:19 PTAGE: 71 years EKG: ATRIAL FIBRILLATION/TACHYCARDIA LOW QRS VOLTAGE IN PRECORDIAL LEADS ABNORMAL RHYTHM ECG No change from prior tracing. PREVIOUS TRACING : 12/01/2016 15.24 DOCTOR: Delano Paulino Interpretating Date/Time 04/22/2017 14:37:11
== END 2017-04-21 21:13 | disposition home or self-care (01) ==
LOC: NEPC 17:34
DX: I48.92 Unspecified atrial flutter (principal); R00.0 Tachycardia, unspecified; I10 Essential (primary) hypertension; I48.91 Unspecified atrial fibrillation
CPT/HCPCS: 71010; 80053; 82550; 83735; 83880; 84484; 85025; 85610; 85730; 93005

== ENCOUNTER 2017-05-01 08:06 | Inpatient (IN) | payer MEDICARE, OTHER ==
[2017-05-01] VITALS (18 sets, daily range): BP systolic 92–121; BP diastolic 51–96; PULSE 105–119; RESP 16–32; TEMP 96.6–98.3; O2SAT 96–100
[~2017-05-01] VITALS: Ht 172.7 cm; Wt 65.1 kg
[~2017-05-01 08:06] MED LIST changes: +AMBI5TAB PO; +IPRA0.02 NEB; +METO25TA3 PO; +MULT1TAB PO; +PROB1CAP12 PO; +SM M250T PO; +SODI7NEB3 NEB
--- NOTE | 2017-05-01 08:24 | PD ---
HPI Chief Complaint: General Weakness Time Seen by Provider: 08:10 Travel History International Travel<30 days: No Contact w/Intl Traveler<30days: No Traveled to known affect area: No History of Present Illness HPI The patient is a 71-year-old female who presents emergency department for generalized weakness, dizziness, shortness of breath with exertion. The patient has a history of atrial fibrillation and atrial flutter and underwent cardiac ablation several months ago at [facility] in [place], [place]. The patient is followed by her deputy coroner, Dr. Smith. The patient has been in touch with Dr. Smith over the last week regarding her elevated heart rate and low blood pressure, states she had her metoprolol 25 mg 3 times a day changed to 50 mg twice a day. However, she continues to be somewhat weak, states that she is somewhat lightheaded with dizziness upon standing and has exertional shortness of breath. The patient cannot recall her last echocardiogram but denies any history of coronary artery disease. She denies any significant swelling or edema to lower extremities. The patient is on Eliquis and metoprolol for her history of atrial fibrillation/atrial flutter. The patient's primary physician is Dr. Lopez. The patient normally takes iron , however, has not been taking the iron for the last week, continues to have dark and black tarry stools. PFSH Past Medical History Hx Anticoagulant Therapy: Yes (ELOQUIS) Arthritis: Yes Atrial Fibrillation: Yes Depression: Yes Heart Rhythm Problems: Yes (AFIB/AFLUTTER) Cancer: Yes (SKIN CA) Cardiovascular Problems: Yes High Cholesterol: Yes COPD: Yes Diabetes: Yes (TYPE 2) Diminished Hearing: No Endocrine: Yes Genitourinary: No Hepatitis: No Hiatal Hernia: No Hypertension: Yes Immune Disorder: No Musculoskeletal: Yes (OSTEOARTHRITIS IN NECK) Neurologic: No Psychiatric: No Reproductive: No Respiratory: Yes (BRONCHIECTASIS) Thyroid Disease: No ?: Not Menopausal: Yes Tubal Ligation: Yes Past Surgical History Abdominal Surgery: Yes (APPENDECTOMY) AICD: No Appendectomy: Yes Cardiac Surgery: Yes (ATRIAL ABLATION) Ear Surgery: No Endocrine Surgery: No Eye Surgery: Yes (CATARACTS REMOVAL WITH LENSE IMPLANTS) Genitourinary Surgery: No Gynecologic Surgery: Yes (BILATERAL TUBAL LIGATION) Joint Replacement: Yes (LEFT HIP) Oral Surgery: No Pacemaker: No Thoracic Surgery: Yes (BREAST AUGMENTATION) Other Surgery: Yes (RECTAL FISTULA REPAIR, BREAST AUGMENTATION, SINUS SURGERY ) Social History Alcohol Use: No Tobacco Use: No Substance Use: No Allergies-Medications (Allergen,Severity, Reaction): Coded Allergies: Bactrim (Verified Allergy, Intermediate, Nausea/Vomiting, 05/01/17) Sulfa (Verified Allergy, Intermediate, Nausea/Vomiting, 05/01/17) *MDRO Multi-Drug Resistant Organism (Unverified Allergy, Unknown, 05/01/17) MRSA Reported Meds & Prescriptions Reported Meds & Active Scripts Active Reported Metoprolol Tartrate 50 Mg Tab 50 Mg PO BID Sodium Chloride Neb (Sodium Chloride) 7 % Neb 4 Ml NEB BID NEB Dilute in bronchodilator solution in nebulizer before administration. Ipratropium Neb (Ipratropium Nesmith) 0.5 Mg/2.5 Ml Amp 0.5 Mg NEB BID NEB Ambien (Zolpidem Tartrate) 5 Mg Tab 5 Mg PO HS Acidophilus (Probiotic Product) 1 Cap Cap 1 Cap PO DAILY Centrum Silver Adult 50+ (Multiple Vitamins W/ Minerals) 1 Tab Tab 1 Tab PO DAILY Sm Magnesium (Magnesium) 250 Mg Tab 250 Mg PO HS Eliquis (Apixaban) 5 Mg Tab 5 Mg PO BID Pravastatin 40 Mg Tab 40 Mg PO AC DINNER Metformin ER (Metformin HCl) 1,000 Mg Nasreen 1,000 Mg PO BID With evening meal Review of Systems Except as stated in HPI: all other systems reviewed are Neg General / Constitutional: No: Fever HENT: Positive: Lightheadedness Cardiovascular: Positive: Irregular Rhythm, Tachycardia, Dyspnea on exertion, No: Chest Pain or Discomfort Respiratory: Positive: Shortness of Breath Gastrointestinal: No: Nausea, Vomiting, Diarrhea, Abdominal Pain Musculoskeletal: Positive: Weakness, No: Edema Neurologic: Positive: Dizziness Physical Exam Narrative GENERAL: Awake, alert, pleasant 71-year-old female who appears her stated age and is in no acute respiratory distress. Pale complexion. SKIN: Focused skin assessment warm/dry. HEAD: Atraumatic. Normocephalic. EYES: Pupils equal and round. Pallor noted. ENT: No nasal bleeding or discharge. Mucous membranes pink and moist. NECK: Trachea midline. No JVD. CARDIOVASCULAR: Regular, tachycardic with a heart rate of 120. RESPIRATORY: No accessory muscle use. Clear to auscultation. Breath sounds equal bilaterally. GASTROINTESTINAL: Abdomen soft, non-tender, nondistended. No rebound tenderness. Rectal: No gross blood, black stool noted, grossly guaiac positive. MUSCULOSKELETAL: No obvious deformities. No clubbing. No cyanosis. No edema. Calves are soft bilaterally. NEUROLOGICAL: Awake and alert. No obvious cranial nerve deficits. Motor grossly within normal limits. Normal speech. PSYCHIATRIC: Appropriate mood and affect; insight and judgment normal. Data Data Last Documented VS Vital Signs Date Time Temp Pulse Resp B/P Pulse Ox O2 Delivery O2 Flow Rate FiO2 05/01/17 09:06 110 17 109/52 100 Nasal Cannula 2.0 05/01/17 08:13 98.0 Orders Complete Blood Count With Diff (05/01/17 08:18) Comprehensive Metabolic Panel (05/01/17 08:18) B-Type Natriuretic Peptide (05/01/17 08:18) Magnesium (Mg) (05/01/17 08:18) Ckmb (Isoenzyme) Profile (05/01/17 08:18) Troponin I (05/01/17 08:18) Urinalysis - C+S If Indicated (05/01/17 08:18) Iv Access Insert/Monitor (05/01/17 08:18) Electrocardiogram (05/01/17 08:18) Ecg Monitoring (05/01/17 08:18) Oximetry (05/01/17 08:18) Oxygen Administration (05/01/17 08:18) Chest, Single Ap (05/01/17 08:18) Sodium Chloride 0.9% Flush (Ns Flush) (05/01/17 08:30) Sodium Chlorid 0.9% 500 Ml Inj (Ns 500 M (05/01/17 08:30) Orthostatic Vital Signs (05/01/17 08:18) Red Blood Cells (Rbc) (05/01/17 08:56) Blood Product Administration .UPON TRANSFUSION (05/01/17 08:56) Sodium Chlor 0.9% 250 Ml Inj (Ns 250 Ml (05/01/17 09:00) Diphenhydramine Inj (Benadryl Inj) (05/01/17 09:00) Acetaminophen (Tylenol) (05/01/17 09:00) Type And Screen (05/01/17 08:56) Pantoprazole Inj (Protonix Inj) (05/01/17 09:15) Admit Order (Ed Use Only) (05/01/17 09:31) Labs Laboratory Tests Test 05/01/17 08:15 White Blood Count 8.9 TH/MM3 Red Blood Count 2.27 MIL/MM3 Hemoglobin 6.3 GM/DL Hematocrit 18.4 % Mean Corpuscular Volume 80.9 FL Mean Corpuscular Hemoglobin 27.8 PG Mean Corpuscular Hemoglobin 34.3 % Concent Red Cell Distribution Width 14.1 % Platelet Count 196 TH/MM3 Mean Platelet Volume 8.9 FL Neutrophils (%) (Auto) 59.5 % Lymphocytes (%) (Auto) 31.3 % Monocytes (%) (Auto) 7.6 % Eosinophils (%) (Auto) 1.4 % Basophils (%) (Auto) 0.2 % Neutrophils # (Auto) 5.3 TH/MM3 Lymphocytes # (Auto) 2.8 TH/MM3 Monocytes # (Auto) 0.7 TH/MM3 Eosinophils # (Auto) 0.1 TH/MM3 Basophils # (Auto) 0.0 TH/MM3 CBC Comment DIFF FINAL Differential Comment Sodium Level 137 MEQ/L Potassium Level 3.7 MEQ/L Chloride Level 101 MEQ/L Carbon Dioxide Level 25.5 MEQ/L Anion Gap 11 MEQ/L Blood Urea Nitrogen 36 MG/DL Creatinine 0.62 MG/DL Estimat Glomerular Filtration 95 ML/MIN Rate Random Glucose 167 MG/DL Calcium Level 8.4 MG/DL Magnesium Level 1.9 MG/DL Total Bilirubin 0.2 MG/DL Aspartate Amino Transf 10 U/L (AST/SGOT) Alanine Aminotransferase 15 U/L (ALT/SGPT) Alkaline Phosphatase 42 U/L Total Creatine Kinase 39 U/L Troponin I LESS THAN 0.02 NG/ML B-Type Natriuretic Peptide 24 PG/ML Total Protein 6.0 GM/DL Albumin 3.4 GM/DL Blood Type O POSITIVE Antibody Screen NEGATIVE Crossmatch Leukocyte-Reduced Red Blood Cells Blood Bank Comment MDM Medical Decision Making Medical Screen Exam Complete: Yes Emergency Medical Condition: Yes Medical Record Reviewed: Yes Interpretation(s) EKG reveals sinus tachycardia with a rate of 119. First-degree AV block. Mild QT prolongation with QTC 462 ms, at one half the RR interval. Last Impressions Chest X-Ray 05/01/17817 Signed Impressions: Service Date/Time: Monday, May 01, 2017 08:15 - CONCLUSION: No acute cardiopulmonary abnormality is identified. Kang Shaw MD Laboratory Tests Test 05/01/17 08:15 White Blood Count 8.9 TH/MM3 Red Blood Count 2.27 MIL/MM3 Hemoglobin 6.3 GM/DL Hematocrit 18.4 % Mean Corpuscular Volume 80.9 FL Mean Corpuscular Hemoglobin 27.8 PG Mean Corpuscular Hemoglobin 34.3 % Concent Red Cell Distribution Width 14.1 % Platelet Count 196 TH/MM3 Mean Platelet Volume 8.9 FL Neutrophils (%) (Auto) 59.5 % Lymphocytes (%) (Auto) 31.3 % Monocytes (%) (Auto) 7.6 % Eosinophils (%) (Auto) 1.4 % Basophils (%) (Auto) 0.2 % Neutrophils # (Auto) 5.3 TH/MM3 Lymphocytes # (Auto) 2.8 TH/MM3 Monocytes # (Auto) 0.7 TH/MM3 Eosinophils # (Auto) 0.1 TH/MM3 Basophils # (Auto) 0.0 TH/MM3 CBC Comment DIFF FINAL Differential Comment Sodium Level 137 MEQ/L Potassium Level 3.7 MEQ/L Chloride Level 101 MEQ/L Carbon Dioxide Level 25.5 MEQ/L Anion Gap 11 MEQ/L Blood Urea Nitrogen 36 MG/DL Creatinine 0.62 MG/DL Estimat Glomerular Filtration 95 ML/MIN Rate Random Glucose 167 MG/DL Calcium Level 8.4 MG/DL Magnesium Level 1.9 MG/DL Total Bilirubin 0.2 MG/DL Aspartate Amino Transf 10 U/L (AST/SGOT) Alanine Aminotransferase 15 U/L (ALT/SGPT) Alkaline Phosphatase 42 U/L Total Creatine Kinase 39 U/L Troponin I LESS THAN 0.02 NG/ML B-Type Natriuretic Peptide 24 PG/ML Total Protein 6.0 GM/DL Albumin 3.4 GM/DL Blood Type O POSITIVE Antibody Screen NEGATIVE Crossmatch Leukocyte-Reduced Red Blood Cells Blood Bank Comment Differential Diagnosis Differential diagnosis includes atrial fibrillation, atrial flutter, sinus tachycardia, dehydration, orthostatic hypotension, electrolyte abnormality, congestive heart failure, cardiomyopathy, pneumonia, pulmonary embolism. Narrative Course IV was established, labs are drawn and sent, and the patient was placed on cardiac telemetry monitoring and continuous pulse oximetry monitoring. EKG was ordered and interpreted. Chest x-ray was obtained. Orthostatic vital signs were obtained and the patient's orthostatic vital signs were positive, patient' s heart rate went from the 114 into the 130s and her systolic blood pressure dropped to lower than 90 upon standing and the patient was symptomatic with dizziness. Hemoglobin was noted to be 6.3, hemoglobin on April 21 was normal, therefore, rectal exam was performed, was positive for dark black stool which is guaiac positive. The patient was administered Protonix 40 mg intravenously and was ordered 2 units of PRBCs to be transfused. Patient has symptomatic anemia with orthostatic changes and will be admitted. HemaPrompt Point of Care Internal Pos. & Neg. Controls: Passed Fecal Specimen Occult Blood: Positive Physician Communication Physician Communication The on-call medical service was paged for admission. I discussed the patient with Dr. Dailey who agrees with admission. Diagnosis Primary Impression: Symptomatic anemia Additional Impression: Gastrointestinal bleed Qualified Code: K92.1 - Gastrointestinal hemorrhage with melena Admitting Information Admitting Physician Requests: Admit Condition: Stable Tae Ibarra MD May 01, 2017 08:24
[2017-05-01] MEDS ORDERED: SODIUM CHLORID 0.9% 500 ML INJ 500 ML IV ONE ×2 (08:30→13:15)
[2017-05-01] MEDS ORDERED: SODIUM CHLORIDE 0.9% FLUSH 10 ML FLUSH IVF PRN (08:30)
[2017-05-01] MEDS ORDERED: METO50TA PO ×2 (08:31)
[2017-05-01 08:45] LABS: AUTOMATED NEUTROPHIL # 5.3 TH/MM3 (1.8-7.7); BASOPHIL % 0.2 % (0.0-2.0); EOSINOPHIL # 0.1 TH/MM3 (0-0.4); EOSINOPHIL % 1.4 % (0.0-4.0); LYMPH % 31.3 % (9.0-44.0); LYMPHOCYTE # 2.8 TH/MM3 (1.0-4.8); MEAN CELL VOLUME 80.9 FL (80.0-100.0); MEAN CORPUSCULAR HEMOGLOBIN 27.8 PG (27.0-34.0); MEAN CORPUSCULAR HGB CONC 34.3 % (32.0-36.0); MONO % 7.6 % (0.0-8.0); NEUT % 59.5 % (16.0-70.0); PLATELET COUNT 196 TH/MM3 (150-450); RED BLOOD COUNT 2.27 MIL/MM3 (4.00-5.30); RED CELL DISTRIBUTION WIDTH 14.1 % (11.6-17.2); WHITE BLOOD COUNT 8.9 TH/MM3 (4.0-11.0)
[2017-05-01 08:48] LABS: HEMO FLAGS DIFF FINAL
--- NOTE | 2017-05-01 08:49 | RADRPT ---
EXAM DATE/TIME: 05/01/2017 08:15 [facility] COMPARISON: CHEST SINGLE AP, April 21, 2017, 18:16. INDICATIONS : Short of breath. MEDICAL HISTORY : Chronic obstructive pulmonary disease. A-fib. SURGICAL HISTORY : Ablation. Bronchiectasis. ENCOUNTER: Initial ACUITY: 1 week PAIN SCORE: 0/10 LOCATION: Bilateral chest FINDINGS: Portable AP view of the chest demonstrates a normal-sized cardiac silhouette. No effusion, consolidat ion, or pneumothorax is visualized. The bones and soft tissues demonstrate no acute abnormality. [place] st implants are present. CONCLUSION: No acute cardiopulmonary abnormality is identified. Kang Shaw MD on May 01, 2017 at 8:45 Board Certified Radiologist. This report was verified electronically.
[2017-05-01 08:50] LABS: HEMATOCRIT 18.4 % (35.0-46.0)
[2017-05-01] MEDS ORDERED: diphenhydrAMINE HCL 50 MG/ML VIAL IV PRN (09:00)
[2017-05-01] MEDS ORDERED: ACETAMINOPHEN 325 MG TAB PO PRN (09:00)
[2017-05-01] MEDS ORDERED: SODIUM CHLOR 0.9% 250 ML INJ 250 ML IV ONE (09:00)
[2017-05-01 09:03] LABS: ALT (GPT) 15 U/L (10-53); ANION GAP 11 MEQ/L (5-15); AST (GOT) 10 U/L (15-37); BICARBONATE 25.5 MEQ/L (21.0-32.0); BLOOD UREA NITROGEN 36 MG/DL (7-18); CHLORIDE 101 MEQ/L (98-107); GLOMERULAR FILTRATION RATE 95 ML/MIN (>89); MAGNESIUM 1.9 MG/DL (1.5-2.5); POTASSIUM 3.7 MEQ/L (3.5-5.1); SODIUM (NA) 137 MEQ/L (136-145)
[2017-05-01 09:07] LABS: ALKALINE PHOSPHATASE 42 U/L (45-117); TOTAL BILIRUBIN ADULT 0.2 MG/DL (0.2-1.0)
[2017-05-01] MEDS ORDERED: PANTOPRAZOLE SODIUM 40 MG VIAL IV PUSH ONE (09:15)
[2017-05-01 09:24] LABS: CREATINE KINASE 39 U/L (26-192)
--- NOTE | 2017-05-01 10:04 | HHI.HP ---
HPI Service Family Medicine Primary Care Physician Alma Lopez MD Admission Diagnosis symptomatic anemia, gastrointestinal bleed with melena, orthostatic Diagnoses: International Travel<30 Days: No Contact w/Intl Traveler<30days: No Known Affected Area: No History of Present Illness Recently seen in ED on 04/21, she had been feeling wore out and increased heart rate. She was found to have atrial flutter with rapid ventricular response into the 120s that corrected with PO metoprolol 25 mgs. She was instructed to take metoprolol as prescribed and to follow-up with Dr. Smith in 1-2 days. Since this time the dose of her metoprolol changed from 25 tid to 50 BID with 25 mg in between as needed. This has not helped with the fatigue or fast heart rate. Today (05/01) she reports that "my heart rate has been elevated and BP has been down" and she "can't function". Could not walk without help this morning so her decided to take her into the ED. She reports feeling extremely lightheaded and dizzy over the past several weeks. She "feels like all of the blood has drained out of my body". No GI bleeding before. Taking Aleve 1-2 per day. Urinating normally, no dysuria. Taking Eliquis 5 mg twice a day, took it this morning. She started taking the Eliquis 3 weeks prior to the ablation. Stools have been dark for "forever and ever". Stopped taking iron a week ago, still remained dark. Never had colonoscopy or EGD. Not loosing weight recently or having night sweats. (Wilfredo Dailey MD R2) Review of Systems Constitutional: COMPLAINS OF: Fatigue, Weight gain, DENIES: Diaphoretic episodes, Fever, Weight loss, Night Sweats Eyes: DENIES: Diplopia Respiratory: DENIES: Cough Gastrointestinal: COMPLAINS OF: Abdominal pain, Black stools, DENIES: Bloody stools, Constipation, Diarrhea, Nausea, Vomiting Musculoskeletal: DENIES: Joint pain Neurologic: DENIES: Headache (Wilfredo Dailey MD R2) Past Family Social History Past Medical History Atrial fibrillation status post ablation 2 Type 2 diabetes Bronchiectasis Osteoarthritis Past Surgical History Appendectomy Cardiac Ablation 2 Bilateral tubal ligation Left hip surgery Breast augmentation (Wilfredo Dailey MD R2) Allergies: Coded Allergies: Bactrim (Verified Allergy, Intermediate, Nausea/Vomiting, 05/01/17) Sulfa (Verified Allergy, Intermediate, Nausea/Vomiting, 05/01/17) *MDRO Multi-Drug Resistant Organism (Unverified Allergy, Unknown, 05/01/17) MRSA Family History Mother of old age in her 90s. Father's history is unknown. Social History Patient never smoked but her was a lifelong smoker who of lung cancer. She was also exposed to secondhand smoking at her workplace. She denies alcohol use. (Wilfredo Dailye MD R2) Physical Exam Vital Signs Vital Signs Date Time Temp Pulse Resp B/P Pulse Ox O2 Delivery O2 Flow Rate FiO2 05/01/17 09:06 110 17 109/52 100 Nasal Cannula 2.0 05/01/17 08:24 114 16 103/52 117 20 100/51 134 32 92/55 05/01/17 08:22 99 Nasal Cannula 2 05/01/17 08:22 99 Nasal Cannula 2 05/01/17 08:13 98 Room Air 05/01/17 08:13 98.0 115 22 102/52 99 Room Air 05/01/17 08:10 98.0 119 22 102/52 99 Physical Exam GENERAL: pale appearing SKIN: no rashes HEAD: Atraumatic. Normocephalic. EYES: scleral pallor, PERRL, EOM intact ENT: pale mucus membranes, no erythema, mmm. NECK: Trachea midline. No JVD or lymphadenopathy. Supple, nontender, no meningeal signs. CARDIOVASCULAR: Regular rate and rhythm without murmurs, gallops, or rubs. Tachycardia to 110 bpm. Regular sounding. RESPIRATORY: Clear to auscultation. GASTROINTESTINAL: slightly distending, hyperactive bs, TTP to deep palpation throughout, no fluid wave shift. MUSCULOSKELETAL: Extremities without clubbing, cyanosis, or edema. NEUROLOGICAL: Awake and alert. Cranial nerves II through XII intact. Laboratory Laboratory Tests Test 05/01/17 08:15 White Blood Count 8.9 Red Blood Count 2.27 Hemoglobin 6.3 Hematocrit 18.4 Mean Corpuscular Volume 80.9 Mean Corpuscular Hemoglobin 27.8 Mean Corpuscular Hemoglobin 34.3 Concent Red Cell Distribution Width 14.1 Platelet Count 196 Mean Platelet Volume 8.9 Neutrophils (%) (Auto) 59.5 Lymphocytes (%) (Auto) 31.3 Monocytes (%) (Auto) 7.6 Eosinophils (%) (Auto) 1.4 Basophils (%) (Auto) 0.2 Neutrophils # (Auto) 5.3 Lymphocytes # (Auto) 2.8 Monocytes # (Auto) 0.7 Eosinophils # (Auto) 0.1 Basophils # (Auto) 0.0 CBC Comment DIFF FINAL Differential Comment Sodium Level 137 Potassium Level 3.7 Chloride Level 101 Carbon Dioxide Level 25.5 Anion Gap 11 Blood Urea Nitrogen 36 Creatinine 0.62 Estimat Glomerular Filtration 95 Rate Random Glucose 167 Calcium Level 8.4 Magnesium Level 1.9 Total Bilirubin 0.2 Aspartate Amino Transf 10 (AST/SGOT) Alanine Aminotransferase 15 (ALT/SGPT) Alkaline Phosphatase 42 Total Creatine Kinase 39 Troponin I LESS THAN 0.02 B-Type Natriuretic Peptide 24 Total Protein 6.0 Albumin 3.4 Blood Type O POSITIVE Antibody Screen NEGATIVE Crossmatch Leukocyte-Reduced Red Blood Cells Blood Bank Comment (Wilfredo Dailey MD R2) Result Diagram: 05/01/1781405/01/17814 Imaging Last 72 hours Impressions Chest X-Ray 05/01/17817 Signed Impressions: Service Date/Time: Wednesday, May 01, 2017 08:15 - CONCLUSION: No acute cardiopulmonary abnormality is identified. Kang Shaw MD (Wilfredo Dailey MD R2) Septic Shock Reassessment Heart: Regular rate and rhythm Lungs: Clear Skin: Warm Peripheral Pulses: Bounding Right Radial Bounding Left Radial Capillary Refill: Sluggish, >2 seconds (Wilfredo Dailey MD R2) Assessment and Plan Assessment and Plan 71-year-old female, with general fatigue for several weeks as well as dark stools,presenting with a hemoglobin of 6.3. Hemoccult-positive in ED. Will be admitted for probable upper GI bleed. Code Status Full (Wilfredo Dailey MD R2) Attending Attestation The patient has been seen and examined. The chart and all resident notes have been reviewed. I agree that inpatient care is appropriate and that a two midnight stay is expected for the reasons documented in the resident history and physical. I have discussed this with the resident and certify the resident s order for inpatient admission. All systems reviewed and neg except as stated in HPI. (Shirley Finney MD) Problem List: (1) Gastrointestinal bleed Status: Acute Plan: Status: Hemoglobin on admission of 6.3, down from her baseline of 12.0 on 04/21/2017. Hemoccult positive stools on exam. BUN increased to 36. Tachycardia to 115 bpm. Given 1 L IVF bolus in ED, +500 ml x 1, and maintenance fluids at 100 ml/hr. Gastroenterology consulted, we appreciate their assistance. Suspect gastritis, vs. bleeding ulcer vs. AVM. Plan as follows: -IV Protonix drip. -Transfuse 2 units of packed red blood cells. -Placed 2 large-bore IVs -Trend hemoglobin and hematocrit every 6 hours after transfusions. (2) Atrial fibrillation with tachycardic ventricular rate Status: Acute Plan: Sinus rhythm today on exam and on EKG. Hold Eliquist given GI bleeding. May benefit from daily aspirin versus other form of anticoagulation after GI bleed resolves. Known to Dr. Smith, we appreciate his assistance. (3) UTI (urinary tract infection) Status: Acute Plan: UA on admission showed: Trace occult blood, large leuk esterase, 27 WBCs , and rare bacteria. -Treated with Rocephin 1 g every 24 hours -Follow up urine cultures. (4) Nutrition, metabolism, and development symptoms Status: Acute Plan: Nutrition: NPO Electrolytes: At goal, will trend DVT: medical contraindication (bleeding), SCDs bilaterally GI ppx: IV Protonix. dw Dr. Finney. (Wilfredo Dailey MD R2) Physician Certification 2 Midnight Certification Type: Admission for Inpatient Services Order for Inpatient Services The services are ordered in accordance with Medicare regulations or non- Medicare payer requirements, as applicable. In the case of services not specified as inpatient-only, they are appropriately provided as inpatient services in accordance with the 2-midnight benchmark. Estimated LOS (days): 2 2 days is the estimated time the patient will need to remain in the hospital, assuming treatment plan goals are met and no additional complications. Post-Hospital Plan: Home (Wilfredo Dailey MD R2) Problem Qualifiers (1) Gastrointestinal bleed: Qualified Code: K92.1 - Gastrointestinal hemorrhage with melena Wilfredo Dailey MD R2 May 01, 2017 10:04 Shirley Finney MD May 02, 2017 14:40
[2017-05-01] MEDS ORDERED: NALOXONE HCL 0.4 MG/ML AMP IV PRN (10:15)
[2017-05-01] MEDS ORDERED: SODIUM CHLORIDE 0.9% FLUSH 10 ML FLUSH IV FLUSH PRN (10:15)
[2017-05-01] MEDS ORDERED: ZOLPIDEM TARTRATE 5 MG TAB PO PRN (10:15)
[2017-05-01] MEDS ORDERED: ONDANSETRON HCL 4 MG/2 ML VIAL IVP PRN (10:15)
[2017-05-01 10:56] LABS: BACTERIA, URINE OCC /hpf; BLOOD, URINE NEG (NEG); COMMENT (UR) CULTURE INDICATED; CULTURE IF INDICATED CULTURE INDICATED; GLUCOSE,URINE NEG (NEG); HYALINE CAST, URINE 3 /lpf (RARE); KETONE, URINE NEG (NEG); MUCUS URINE FEW /lpf (OCC); NITRITE,URINE NEG (NEG); PH, URINE 5.5 (5.0-8.5); SQUAMOUS EPITHELIAL CELL URINE 4 /hpf (0-5); URINE COLOR LIGHT-YELLOW (YELLW/STRAW)
[2017-05-01] MEDS ORDERED: PANTOPRAZOLE INJ 80 MG in SODIUM CHLORIDE 0.9% INJ 35 ML IV ONE (12:00)
[2017-05-01] MEDS: SODIUM CHLORIDE 0.9% FLUSH 10 ML FLUSH IV FLUSH SCH ×2 (12:08→20:26)
[2017-05-01] MEDS: SODIUM CHLOR 0.9% 1000 ML INJ 1,000 ML IV SCH ×2 (12:41→17:26)
--- NOTE | 2017-05-01 13:02 | EKG ---
Date Performed: 05/01/2017 Time Performed: 08:12:02 PTAGE: 71 years EKG: SINUS TACHYCARDIA WITH FIRST DEGREE AV BLOCK LOW QRS VOLTAGE IN PRECORDIAL LEADS ABNORMAL E CG PREVIOUS TRACING : 04/21/2017 18.01 Compared to prior tracing no significant change DOCTOR: López Galicia Interpretating Date/Time 05/01/2017 13:00:51
[2017-05-01] MEDS ORDERED: PEG (High)/E-LYTE SOLN 4000 ML BTL PO ONE (13:30)
--- NOTE | 2017-05-01 15:49 | MB ---
cc: DARREN BELL DATE OF CONSULTATION: 05/01/2017. REASON FOR CONSULTATION: Significant anemia. HISTORY OF PRESENT ILLNESS: Thank you for the consultation. This is a 71-year-old lady who has been doing well but in the last few days she felt that she had significant weakness, lightheadedness and dizzy and she felt that her blood pressure was down and she was tachycardiac. She did not notice any other problems and then she came to the hospital where she was found to be severely anemic with a hemoglobin of 6.2. The patient takes Eliquis for a blood thinner and she takes Aleve almost on a daily basis according to her. She denied any GI symptoms. She never had any GI workup. No nausea and no vomiting. No hematemesis. No melena or black stool. PAST MEDICAL HISTORY: Significant for coronary artery disease and she has had an ablation. FAMILY HISTORY: Noncontributory. MEDICATIONS: Reviewed in the chart. ALLERGIES 1. SULFA. 2. CODEINE. 3. MULTIDRUG-RESISTANT ORGANISM. PHYSICAL EXAMINATION: GENERAL: Alert, oriented no acute distress. VITAL SIGNS: Stable. HEAD, EYES, EARS, NOSE, THROAT: Pupils are reactive to light. NECK: The neck is supple. CHEST: Clear to auscultation and percussion. The patient looks very pale. CARDIAC: Regular rate and rhythm. No murmur or gallop at this time. ABDOMEN: Soft, nondistended. Positive bowel sounds. No hepatosplenomegaly. EXTREMITIES: No edema, clubbing or cyanosis. NEUROLOGIC: Neurologically intact without any weakness or focal abnormalities. PSYCHIATRIC: Psychologically appropriate. LABORATORY DATA: White count 8.9, hemoglobin 6.3, platelets 196,000. Liver function tests normal. Total bilirubin 0.2, AST 10, ALT 15. Creatinine 0.62. IMAGING STUDIES: Chest x-ray was negative. ASSESSMENT AND PLAN: 71-year-old lady with severe anemia. The patient takes a significant amount of NSAIDS and she is on Eliquis and likely this is the GI bleed. 1. I recommend doing upper endoscopy and colonoscopy since she never had this done. 2. We will place her on PPI. 3. She will be off NSAIDs. 4. Will give her packed RBCs as needed. 5. Further plan depends on how she is doing in the next 24 hours and with the finding on the endoscopy and colonoscopy. MD EMIR Mott/JIMMY /1:36 PM /3:45 PM
[2017-05-01] MEDS: cefTRIAXone INJ 1,000 MG in SODIUM CHLORIDE 0.9% INJ 100 ML IV SCH (17:14)
[2017-05-01 20:16] LABS: HEMATOCRIT 26.2 % (35.0-46.0); REVIEW FLAG FINAL
[2017-05-02] VITALS (8 sets, daily range): BP systolic 104–136; BP diastolic 53–69; PULSE 108–126; RESP 17–20; TEMP 96.5–98.3; O2SAT 95–100
[2017-05-02 00:57] LABS: HEMATOCRIT 24.4 % (35.0-46.0); REVIEW FLAG FINAL
[2017-05-02] MEDS: SODIUM CHLOR 0.9% 1000 ML INJ 1,000 ML IV SCH ×2 (06:11→16:11)
[2017-05-02 06:24] LABS: HEMATOCRIT 23.2 % (35.0-46.0); REVIEW FLAG FINAL
--- NOTE | 2017-05-02 08:25 | HHI.FPPN ---
Subjective Subjective Patient seen and examined. Case reviewed and discussed Please refer to resident H&P for further details regarding HPI, ROS, PMH, SurgHx , FH and SocHx. In summary, patient is a 71yoF known to Dr[address] Smith presenting for weakness and lightheadedness. Hgb 6.3 upon arrival. No prior history of colonoscopy Hemoccult + in ED She is seen in her hospital bed this am prior to colonoscopy/EGD No further bleeding this am, reports yellow stools Symptomatically better after blood transfusion [facility] Objective Objective Last Impressions Chest X-Ray 05/01/17817 Signed Impressions: Service Date/Time: Wednesday, May 01, 2017 08:15 - CONCLUSION: No acute cardiopulmonary abnormality is identified. Kang Shaw MD Laboratory Tests - Abnormals Test 05/01/17 05/01/17 05/02/17 05/02/17 10:30 19:35 00:15 06:00 Urine Leukocyte Esterase LARGE Urine WBC 10 /hpf Urine WBC Clumps RARE Urine Bacteria OCC /hpf Urine Mucus FEW /lpf Hemoglobin 8.9 GM/DL 8.4 GM/DL 7.7 GM/DL Hematocrit 26.2 % 24.4 % 23.2 % Vital Signs 05/01/17 05/01/17 05/01/17 05/01/17 08:22 08:22 08:24 09:06 Pulse 114 110 117 134 Resp B/P 103/52 109/52 100/51 92/55 Pulse Ox 99 99 100 O2 Delivery Nasal Cannula Nasal Cannula Nasal Cannula O2 Flow Rate 2 2 2.0 05/01/17 05/01/17 05/01/17 05/01/17 10:32 10:34 10:45 10:45 Temp 98.2 98.2 98.3 Pulse 116 108 110 110 Resp 24 B/P 94/53 94/53 93/55 93/55 Pulse Ox 100 100 100 100 O2 Delivery Nasal Cannula Nasal Cannula Nasal Cannula Nasal Cannula O2 Flow Rate 1 1 2.0 05/01/17 05/01/17 05/01/17 05/01/17 10:47 10:55 11:00 11:15 Temp 98.0 98.3 Pulse 112 111 112 114 Resp B/P 102/55 100/55 101/53 104/53 Pulse Ox 100 100 100 100 O2 Delivery Nasal Cannula Room Air Nasal Cannula Nasal Cannula O2 Flow Rate 1 1 2.0 2.0 05/01/17 05/01/17 05/01/17 05/01/17 13:00 13:00 13:15 13:40 Temp 97.5 96.6 97.7 Pulse 118 111 115 Resp 18 16 16 B/P 102/54 120/96 102/54 Pulse Ox 99 96 98 O2 Delivery Nasal Cannula O2 Flow Rate 2.00 05/01/17 05/01/17 05/01/17 05/01/17 16:00 20:00 20:06 21:46 Temp 97.1 97.1 Pulse 110 108 105 Resp 17 B/P 112/55 121/69 Pulse Ox 100 100 98 05/02/17 05/02/17 05/02/17 00:00 04:00 07:50 Temp 96.5 97.4 97.5 Pulse 126 108 116 Resp 19 18 20 B/P 136/69 104/57 110/57 Pulse Ox 100 100 97 INTAKE & OUTPUT 05/02/17 07:00 Intake Total 2727 ml Output Total 1050 ml Balance 1677 ml Physical exam GENERAL: wdwn female, resting in bed, nd SKIN: Warm and dry. Pallor HEAD: Normocephalic. AT EYES: No scleral icterus. No injection or drainage. NECK: Supple, trachea midline. No JVD or lymphadenopathy. CARDIOVASCULAR: tachycardic rate and reg rhythm without murmurs, gallops, or rubs. RESPIRATORY: Breath sounds equal bilaterally. No accessory muscle use. GASTROINTESTINAL: Abdomen soft, non-tender, nondistended. Normal active BS no rebound MUSCULOSKELETAL: No cyanosis, or edema. No calf tenderness BACK: Nontender without obvious deformity. No CVA tenderness. NEURO: Awake and alert. normal speech. CN grossly intact. Assessment Assessment 71yoF with: Anemia, acute blood loss GIB Symptomatic anemia Anti-coagulated on Eliquis Atrial fibrillation, paroxysmal status post ablation 2 Type 2 diabetes Bronchiectasis Osteoarthritis PLAN PLAN Protonix IV GI consultation Trend serial hgb Transfuse as needed Telemetry Cardiology consultation, known to Luis, sherry recs for anti-platelet, vs anticoagulation Resume home meds as appropriate SCDs Patient seen and examined. Case reviewed and discussed Agree with plan of care as discussed with me and documented in the resident note. Shirley Finney MD May 02, 2017 08:25
[2017-05-02] MEDS: SODIUM CHLORIDE 0.9% FLUSH 10 ML FLUSH IV FLUSH SCH ×2 (09:00→20:44)
[2017-05-02] MEDS ORDERED: METOPROLOL TARTRATE 25 MG TAB PO ONE (10:00)
[2017-05-02] MEDS ORDERED: PILL SPLITTER OTHER PRN (10:00)
[2017-05-02 11:34] LABS: APTT (PATIENT) 21.5 SEC (24.3-30.1); PROTHROMBIN TIME - PATIENT 10.7 SEC (9.8-11.6)
[2017-05-02] MEDS ORDERED: PROPOFOL 200 MG/20 ML AMP IV ONE (11:52)
[2017-05-02 11:57] LABS: BICARBONATE 25.8 MEQ/L (21.0-32.0); POTASSIUM 3.4 MEQ/L (3.5-5.1)
--- NOTE | 2017-05-02 12:21 | PD.PROCEDR ---
GI Procedure REFERRING PHYSICIAN Dr. matute PROCEDURE PERFORMED EGD with biopsy followed by colonoscopy with biopsy INDICATION FOR PROCEDURE Profound anemia PROCEDURE: The procedure, risks and benefits were discussed with Ms. Hall and informed consent was obtained. Anesthesia sedated her with Diprivan. She was placed in the left lateral decubitus position. EGD: The Pentax videoscope was introduced through the oropharynx and advanced to the second portion of the duodenum under direct visualization. Retroflexion was performed in the stomach. FINDINGS: The esophagus this was normal The stomach there was a small hiatal hernia there were superficial erosions in the antrum with 3 or 4 small ulcers which were clean-based no visible vessel no active bleeding heme was noted in the stomach and antral biopsies were taken for further evaluation The duodenum this was normal Colonoscopy: The Pentax videoscope was introduced through the rectum and advanced to cecum where the ileocecal valve and appendiceal orifice were identified. Retroflexion was performed in the rectum. Colonic prep was good FINDINGS: Colonic withdrawal time greater than 6 minutes as the scope was slowly withdrawn colonic mucosa was carefully inspected the patient was noted to have a diminutive polyp in the rectum this was excised using cold biopsy forceps colonic examination was otherwise unremarkable so as retroflexion and rectal examination ESTIMATED BLOOD LOSS: None SPECIMENS REMOVED: Antral biopsy and colon polyp COMPLICATIONS: None IMPRESSION: Small hiatal hernia Gastric ulcers in the antrum Erosive gastritis Colon polyp PLAN: Await biopsy Recommend Protonix 40 mg daily Avoid NSAIDs and aspirin Monitor labs Repeat EGD in 2 months Colonoscopy in 5 years Advance diet as tolerated Probable discharge tomorrow if all is stable Carlos Michel MD May 02, 2017 12:21
--- NOTE | 2017-05-02 13:13 | MB ---
cc: YUE PAUL M.D., HUMAYUN A. M.D. HENDERSON, DAVID A. M.D. DATE OF CONSULTATION: 05/02/2017. REASON FOR CONSULTATION: GI bleed. Orthostasis. ADMITTING PHYSICIAN: Dr. Finney. IMPRESSION: 1. GI bleed. 2. Oral anticoagulation with Eliquis. 3. Atrial fibrillation, paroxysmal, status post ablation. 4. History of diabetes mellitus. 5. History of bronchiectasis. RECOMMENDATIONS: The patient is currently in the GI lab undergoing endoscopy. SUBJECTIVE: She is currently in the GI lab undergoing endoscopy. EXAM: She is currently in the GI lab undergoing endoscopy. Please see anesthesiologist's note and tile molder's note. PERTINENT HISTORICAL DATA: She was recently seen in the emergency room on April with a history of paroxysmal atrial fibrillation ablation and had a hemoglobin of 13 at that time. Metoprolol was increased. She was asked to see Dr. Smith as an outpatient. She returned to the emergency room on 05/01 orthostatic with a hemoglobin of 6 and hematocrit of 18 with ciera GI bleeding with dark stools, hemoccult-positive. Dr. Quintana was consulted; please that report. She was given IV Protonix. She is now in the GI lab. MD HARVINDER Watt/JIMMY /11:47 AM /1:10 PM
[2017-05-02 15:51] LABS: HEMATOCRIT 23.9 % (35.0-46.0); REVIEW FLAG FINAL
[2017-05-02] MEDS: cefTRIAXone INJ 1,000 MG in SODIUM CHLORIDE 0.9% INJ 100 ML IV SCH (18:12)
[2017-05-02] MEDS: PANTOPRAZOLE SOD 40 MG DELAYED RELEASE TAB PO SCH (18:15)
[2017-05-02] MEDS: METOPROLOL TARTRATE 25 MG TAB PO SCH (20:44)
[2017-05-02 23:00] LABS: HEMATOCRIT 22.5 % (35.0-46.0); REVIEW FLAG FINAL
[2017-05-03] VITALS (11 sets, daily range): BP systolic 94–113; BP diastolic 52–67; PULSE 100–119; RESP 16–20; TEMP 96.8–98.3; O2SAT 96–99
[2017-05-03] MEDS: SODIUM CHLOR 0.9% 1000 ML INJ 1,000 ML IV SCH ×3 (02:11→21:18)
[2017-05-03 07:33] LABS: HEMATOCRIT 23.2 % (35.0-46.0); MEAN CELL VOLUME 85.3 FL (80.0-100.0); MEAN CORPUSCULAR HEMOGLOBIN 28.1 PG (27.0-34.0); PLATELET COUNT 165 TH/MM3 (150-450); RED BLOOD COUNT 2.72 MIL/MM3 (4.00-5.30); RED CELL DISTRIBUTION WIDTH 15.7 % (11.6-17.2); REVIEW FLAG FINAL
[2017-05-03 07:54] LABS: BICARBONATE 27.7 MEQ/L (21.0-32.0); POTASSIUM 3.8 MEQ/L (3.5-5.1)
[2017-05-03] MEDS: SODIUM CHLORIDE 0.9% FLUSH 10 ML FLUSH IV FLUSH SCH ×2 (09:27→20:19)
--- NOTE | 2017-05-03 09:27 | PD.CARD.PN ---
Subjective Subjective Remarks No Chest pain or sob Objective Medications Administered Medications Medications (Trade) Dose Ordered Sig/Arvind Route PRN Reason Start Time Stop Time Status Last Admin Dose Admin Sodium Chloride (NS 1000 ml Inj) 1,000 ml @ 100 mls/hr Q10H IV 05/01/17 10:11 05/02/17 16:11 Sodium Chloride (NS Flush) 2 ml BID IV FLUSH 05/01/17 10:15 05/02/17 20:44 Zolpidem Tartrate 5 mg 5 mg HS PRN PO INSOMNIA 05/01/17 10:15 05/02/17 22:03 Ceftriaxone Sodium/Sodium Chloride (Rocephin Inj/NS Inj) 100 ml @ 200 mls/hr Q24H IV 05/01/17 17:00 05/02/17 18:12 Metoprolol Tartrate (Lopressor) 12.5 mg Q12HR PO 05/02/17 21:00 05/02/17 20:44 Pantoprazole Sodium (Protonix) 40 mg DAILY PO 05/02/17 13:00 05/02/17 18:15 Vital Signs / I&O Vital Signs Date Time Temp Pulse Resp B/P Pulse Ox O2 Delivery O2 Flow Rate FiO2 05/03/17 07:50 97.5 119 20 103/53 97 05/03/17 04:00 96.8 108 17 113/58 98 05/03/17 00:00 97.9 109 18 98/60 96 05/02/17 21:48 95 21 05/02/17 20:00 98.0 116 17 117/64 97 05/02/17 15:30 98.3 115 20 104/53 96 05/02/17 12:30 96 19 103/56 100 Nasal Cannula 3 05/02/17 12:23 98 23 92/52 100 Nasal Cannula 3 05/02/17 12:21 98.7 98 18 89/54 99 Nasal Cannula 3 05/02/17 11:19 98.2 121 20 112/56 98 I/O 05/02/17 05/02/17 05/02/17 05/03/17 05/03/17 05/03/17 07:00 15:00 23:00 07:00 15:00 23:00 Intake Total 0 ml 641 ml Output Total 300 ml 500 ml Balance 0 ml 341 ml -500 ml Intake Oral 0 ml 341 ml Other 300 ml Output Urine Total 300 ml 500 ml # Voids 4 3 1 # Bowel Movements 4 0 0 Physical Exam GENERAL: Well-nourished,pale and anemic. SKIN: Warm and dry. NECK: JVD normal - less than or equal to 5 cm H20. CARDIOVASCULAR: Regular rate and rhythm without murmurs, gallops or rubs. RESPIRATORY: Normal breath sounds - equal bilaterally. No accessory muscle use. No wheezes, rales or rubs. PERIPHERY: No cyanosis or edema. Laboratory Laboratory Tests Test 05/02/17 05/02/17 05/02/17 05/03/17 10:54 15:37 22:26 07:01 Prothrombin Time 10.7 SEC Prothromb Time International 1.0 RATIO Ratio Activated Partial 21.5 SEC Thromboplast Time Sodium Level 142 MEQ/L 140 MEQ/L Potassium Level 3.4 MEQ/L 3.8 MEQ/L Chloride Level 107 MEQ/L 104 MEQ/L Carbon Dioxide Level 25.8 MEQ/L 27.7 MEQ/L Anion Gap 9 MEQ/L 8 MEQ/L Blood Urea Nitrogen 9 MG/DL 10 MG/DL Creatinine 0.38 MG/DL 0.43 MG/DL Estimat Glomerular Filtration 166 ML/MIN 144 ML/MIN Rate Random Glucose 119 MG/DL 118 MG/DL Calcium Level 8.1 MG/DL 8.5 MG/DL Hemoglobin 7.9 GM/DL 7.7 GM/DL 7.6 GM/DL Hematocrit 23.9 % 22.5 % 23.2 % White Blood Count 4.0 TH/MM3 Red Blood Count 2.72 MIL/MM3 Mean Corpuscular Volume 85.3 FL Mean Corpuscular Hemoglobin 28.1 PG Mean Corpuscular Hemoglobin 33.0 % Concent Red Cell Distribution Width 15.7 % Platelet Count 165 TH/MM3 Mean Platelet Volume 8.4 FL Imaging Laboratory Tests Test 05/01/17 05/01/17 05/01/17 05/02/17 08:15 10:30 19:35 00:15 Red Blood Count 2.27 MIL/MM3 (4.00-5.30) Hemoglobin 6.3 GM/DL 8.9 GM/DL 8.4 GM/DL (11.6-15.3) (11.6-15.3) (11.6-15.3) Hematocrit 18.4 % 26.2 % 24.4 % (35.0-46.0) (35.0-46.0) (35.0-46.0) Blood Urea Nitrogen 36 MG/DL (7-18) Random Glucose 167 MG/DL (74-106) Calcium Level 8.4 MG/DL (8.5-10.1) Aspartate Amino Transf 10 U/L (15-37) (AST/SGOT) Alkaline Phosphatase 42 U/L (45-117) Troponin I LESS THAN 0.02 NG/ML (0.02-0.05) Total Protein 6.0 GM/DL (6.4-8.2) Urine Leukocyte Esterase LARGE (NEG) Urine WBC 10 /hpf (0-5) Urine WBC Clumps RARE (NONE) Urine Bacteria OCC /hpf (NONE) Urine Mucus FEW /lpf (OCC) Test 05/02/17 05/02/17 05/02/17 05/02/17 06:00 10:54 15:37 22:26 Hemoglobin 7.7 GM/DL 7.9 GM/DL 7.7 GM/DL (11.6-15.3) (11.6-15.3) (11.6-15.3) Hematocrit 23.2 % 23.9 % 22.5 % (35.0-46.0) (35.0-46.0) (35.0-46.0) Activated Partial 21.5 SEC Thromboplast Time (24.3-30.1) Potassium Level 3.4 MEQ/L (3.5-5.1) Creatinine 0.38 MG/DL (0.50-1.00) Random Glucose 119 MG/DL (74-106) Calcium Level 8.1 MG/DL (8.5-10.1) Test 05/03/17 07:01 Red Blood Count 2.72 MIL/MM3 (4.00-5.30) Hemoglobin 7.6 GM/DL (11.6-15.3) Hematocrit 23.2 % (35.0-46.0) Creatinine 0.43 MG/DL (0.50-1.00) Random Glucose 118 MG/DL (74-106) Assessment and Plan Assessment and Plan Stable , continues to bleed will keep of Eliquis, theoretical risk of stroke vs real bleeding. Discussed Condition With Dr Marr in detail. Hamlet Smith MD May 03, 2017 09:26
[2017-05-03] MEDS: PANTOPRAZOLE SOD 40 MG DELAYED RELEASE TAB PO SCH (09:28)
[2017-05-03] MEDS: METOPROLOL TARTRATE 25 MG TAB PO SCH (09:28)
[2017-05-03] MEDS ORDERED: diphenhydrAMINE HCL 25 MG CAP PO PRN (09:30)
[2017-05-03] MEDS ORDERED: LORazepam 1 MG TAB PO PRN (09:30)
[2017-05-03] MEDS ORDERED: FUROSEMIDE 20 MG/2 ML VIAL IV ONE (09:30)
[2017-05-03] MEDS ORDERED: SODIUM CHLOR 0.9% 250 ML INJ 250 ML IV ONE (09:30)
--- NOTE | 2017-05-03 09:30 | HHI.DCPOC ---
Discharge Care Plan Diagnosis: (1) Gastrointestinal bleed (2) UTI (urinary tract infection) Goals to Promote Your Health * To prevent worsening of your condition and complications follow all discharge instructions * To maintain your health at the optimal level take all medications as prescribed Directions to Meet Your Goals Take your medications as prescribed Follow your dietary instruction Follow activity as directed Keep your appointments as scheduled Take your immunizations and boosters as scheduled If your symptoms worsen call your PCP, if no PCP go to Urgent Care Center or Emergency Room Smoking is Dangerous to Your Health. Avoid second hand smoke Call the 24-hour hour crisis hotline for domestic abuse at Rosa Marr MD R3 May 03, 2017 09:30 Shirley Finney MD May 06, 2017 12:07
[2017-05-03] MEDS ORDERED: PROT40TA PO (11:50)
--- NOTE | 2017-05-03 11:54 | HHI.FPPN ---
Subjective Remarks No acute events overnight. Patient tachycardic to 119. Denies any dizziness upon standing. States that she is feeling well, although still a little bit weak. (Rosa Marr MD R3) Objective Vitals Vital Signs Date Time Temp Pulse Resp B/P Pulse Ox O2 Delivery O2 Flow Rate FiO2 05/03/17 07:50 97.5 119 20 103/53 97 05/03/17 07:35 99 21 05/03/17 04:00 96.8 108 17 113/58 98 05/03/17 00:00 97.9 109 18 98/60 96 05/02/17 21:48 95 21 05/02/17 20:00 98.0 116 17 117/64 97 05/02/17 15:30 98.3 115 20 104/53 96 05/02/17 12:30 96 19 103/56 100 Nasal Cannula 3 05/02/17 12:23 98 23 92/52 100 Nasal Cannula 3 05/02/17 12:21 98.7 98 18 89/54 99 Nasal Cannula 3 I/O 05/02/17 05/02/17 05/02/17 05/03/17 05/03/17 05/03/17 07:00 15:00 23:00 07:00 15:00 23:00 Intake Total 0 ml 641 ml Output Total 300 ml 500 ml Balance 0 ml 341 ml -500 ml Intake Oral 0 ml 341 ml Other 300 ml Output Urine Total 300 ml 500 ml # Voids 4 3 1 # Bowel Movements 4 0 0 (Rosa Marr MD R3) Result Diagram: 05/03/17 0701 05/03/17 0701 Objective Remarks Gen.: No acute distress Head: Normocephalic. Atraumatic. EENT: Pupils equal round and reactive to light. Nose without drainage. Airway intact. Throat without injection. Cardiovascular: Tachycardic with regular rhythm. No murmurs, rubs or gallops. Respiratory: Lungs clear to auscultation bilaterally. No wheezes or rhonchi. Abdomen: Soft, nontender, nondistended. No peritoneal signs. Musculoskeletal: No gross deformities. No edema. Skin: No obvious rashes or erythema. Patient with multiple stable skin lesions on right mid back. Neuro: Sensory and motor grossly intact. Cranial nerves II through XII grossly intact. Psych: Appropriate mood and affect (Rosa Marr MD R3) A/P Assessment and Plan 71-year-old female, with general fatigue for several weeks as well as dark stools,presenting with a hemoglobin of 6.3. Hemoccult-positive in ED. ( Rosa Marr MD R3) Attending Attestation Patient seen and examined Case reviewed and discussed Agree with plan of care as discussed with me and documented in the resident note. (Shirley Finney MD) Problem List: (1) Gastrointestinal bleed Status: Acute Plan: Patient status post transfusion 2 units packed red blood cells. EGD significant for gastritis and 3 antral ulcers, likely cause of her bleeding. Gastroenterology recommends avoiding NSAIDs and aspirin. Patient also will need to stop her Eliquis. She will follow-up with gastroenterology as an outpatient. Hemoglobin today 7.6. Patient will receive 2 units of packed red blood cells prior to discharge. Follow-up H/H in 2 days. -Protonix on discharge -DC Eliquis -No anticoagulation per Dr. Smith (2) Atrial fibrillation with tachycardic ventricular rate Status: Acute Plan: Sinus rhythm today on exam and on EKG. Spoke with Dr. Smith, who recommends holding anticoagulation Patient status post ablation in October She will follow-up as an outpatient with Dr. Smith (3) UTI (urinary tract infection) Status: Acute Plan: UA on admission showed: Trace occult blood, large leuk esterase, 27 WBCs , and rare bacteria. -Treated with Rocephin 1 g every 24 hours (4) Nutrition, metabolism, and development symptoms Status: Acute Plan: Nutrition: Regular diet Electrolytes: At goal, will trend DVT: medical contraindication (bleeding), SCDs bilaterally (Rosa Marr MD R3) Problem Qualifiers (1) Gastrointestinal bleed: Qualified Code: K92.1 - Gastrointestinal hemorrhage with melena Rosa Marr MD R3 May 03, 2017 11:54 Shirley Finney MD May 06, 2017 12:07
--- NOTE | 2017-05-03 13:00 | HHI.DS ---
Rosa Marr MD R3 05/03/17 1259: Discharge Summary Admission Date May 01, 2017 at 09:31 Discharge Date: May 03, 2017 Admitting Diagnosis symptomatic anemia, gastrointestinal bleed with melena, orthostatic (1) Gastrointestinal bleed Diagnosis: Principal Plan: Patient status post transfusion 2 units packed red blood cells. EGD significant for gastritis and 3 antral ulcers, likely cause of her bleeding. Gastroenterology recommends avoiding NSAIDs and aspirin. Patient also will need to stop her Eliquis. She will follow-up with gastroenterology as an outpatient. Hemoglobin today 7.6. Patient will receive 2 units of packed red blood cells prior to discharge. Follow-up H/H in 2 days. -Protonix on discharge -DC Eliquis -No anticoagulation per Dr. Smith (2) Atrial fibrillation with tachycardic ventricular rate Diagnosis: Secondary Plan: Sinus rhythm today on exam and on EKG. Spoke with Dr. Smith, who recommends holding anticoagulation Patient status post ablation in October She will follow-up as an outpatient with Dr. Smith (3) UTI (urinary tract infection) Diagnosis: Principal Plan: UA on admission showed: Trace occult blood, large leuk esterase, 27 WBCs , and rare bacteria. -Treated with Rocephin 1 g every 24 hours Consultants Gastroenterology Cardiology Procedures EGD/colonoscopy on 05/02/17 Brief History History of present illness: Recently seen in ED on 04/21, she had been feeling wore out and increased heart rate. She was found to have atrial flutter with rapid ventricular response into the 120s that corrected with PO metoprolol 25 mgs. She was instructed to take metoprolol as prescribed and to follow-up with Dr. Smith in 1-2 days. Since this time the dose of her metoprolol changed from 25 tid to 50 BID with 25 mg in between as needed. This has not helped with the fatigue or fast heart rate. Today (05/01) she reports that "my heart rate has been elevated and BP has been down" and she "can't function". Could not walk without help this morning so her decided to take her into the ED. She reports feeling extremely lightheaded and dizzy over the past several weeks. She "feels like all of the blood has drained out of my body". No GI bleeding before. Taking Aleve 1-2 per day. Urinating normally, no dysuria. Taking Eliquis 5 mg twice a day, took it this morning. She started taking the Eliquis 3 weeks prior to the ablation. Stools have been dark for "forever and ever". Stopped taking iron a week ago, still remained dark. Never had colonoscopy or EGD. Not loosing weight recently or having night sweats. CBC/BMP: 05/03/17 0701 05/03/17 0701 Significant Findings Laboratory Tests Test 05/01/17 05/01/17 05/01/17 05/02/17 08:15 10:30 19:35 00:15 Red Blood Count 2.27 MIL/MM3 (4.00-5.30) Hemoglobin 6.3 GM/DL 8.9 GM/DL 8.4 GM/DL (11.6-15.3) (11.6-15.3) (11.6-15.3) Hematocrit 18.4 % 26.2 % 24.4 % (35.0-46.0) (35.0-46.0) (35.0-46.0) Blood Urea Nitrogen 36 MG/DL (7-18) Random Glucose 167 MG/DL (74-106) Calcium Level 8.4 MG/DL (8.5-10.1) Aspartate Amino Transf 10 U/L (15-37) (AST/SGOT) Alkaline Phosphatase 42 U/L (45-117) Troponin I LESS THAN 0.02 NG/ML (0.02-0.05) Total Protein 6.0 GM/DL (6.4-8.2) Urine Leukocyte Esterase LARGE (NEG) Urine WBC 10 /hpf (0-5) Urine WBC Clumps RARE (NONE) Urine Bacteria OCC /hpf (NONE) Urine Mucus FEW /lpf (OCC) Test 05/02/17 05/02/17 05/02/17 05/02/17 06:00 10:54 15:37 22:26 Hemoglobin 7.7 GM/DL 7.9 GM/DL 7.7 GM/DL (11.6-15.3) (11.6-15.3) (11.6-15.3) Hematocrit 23.2 % 23.9 % 22.5 % (35.0-46.0) (35.0-46.0) (35.0-46.0) Activated Partial 21.5 SEC Thromboplast Time (24.3-30.1) Potassium Level 3.4 MEQ/L (3.5-5.1) Creatinine 0.38 MG/DL (0.50-1.00) Random Glucose 119 MG/DL (74-106) Calcium Level 8.1 MG/DL (8.5-10.1) Test 05/03/17 07:01 Red Blood Count 2.72 MIL/MM3 (4.00-5.30) Hemoglobin 7.6 GM/DL (11.6-15.3) Hematocrit 23.2 % (35.0-46.0) Creatinine 0.43 MG/DL (0.50-1.00) Random Glucose 118 MG/DL (74-106) Imaging Last Impressions Chest X-Ray 05/01/17 0818 Signed Impressions: Service Date/Time: Wednesday, May 01, 2017 08:15 - CONCLUSION: No acute cardiopulmonary abnormality is identified. Kang Shaw MD PE at Discharge Gen.: No acute distress Head: Normocephalic. Atraumatic. EENT: Pupils equal round and reactive to light. Nose without drainage. Airway intact. Throat without injection. Cardiovascular: Tachycardic with regular rhythm. No murmurs, rubs or gallops. Respiratory: Lungs clear to auscultation bilaterally. No wheezes or rhonchi. Abdomen: Soft, nontender, nondistended. No peritoneal signs. Musculoskeletal: No gross deformities. No edema. Skin: No obvious rashes or erythema. Patient with multiple stable skin lesions on right mid back. Neuro: Sensory and motor grossly intact. Cranial nerves II through XII grossly intact. Psych: Appropriate mood and affect Hospital Course Patient admitted for acute anemia associated with GI bleed. EGD revealed antral ulcers. The decision was made after speaking with gastroenterology and cardiology to stop anticoagulating the patient who is status post ablation in October 2016. Her home medications were restarted with the exception of Eliquis. She was transfused a total of 4 units packed red blood cells and will repeat a CBC in 2 days. She will follow-up with her PCP and with her leather craftsman. She was discharged home in stable condition. Pt Condition on Discharge: Stable Discharge Disposition: Discharge Home Discharge Instructions DIET: Follow Instructions for: As Tolerated, No Restrictions Follow up Referrals: Cardiology - 2 Weeks Gastroenterology - 4 Weeks with Carlos Michel MD PCP Follow-up - 1 Week New Orders: CBC NO DIFF - 2-3 Days New Medications: Pantoprazole (Protonix) 40 Mg Tab 40 MG PO DAILY Ulcer Prevention #30 Ref 0 TAB Continued Medications: Ipratropium Neb (Ipratropium Neb) 0.5 Mg/2.5 Ml Amp 0.5 MG NEB BID NEB Breathing Treatment Ref 0 NEBULE Magnesium (Sm Magnesium) 250 Mg Tab 250 MG PO HS Metformin ER (Metformin ER) 1,000 Mg Nasreen 1000 MG PO BID With evening meal Blood Sugar Management #30 Ref 0 TAB Metoprolol Tartrate (Metoprolol Tartrate) 50 Mg Tab 50 MG PO BID #60 Ref 0 TAB Multiple Vitamins W/ Minerals (Centrum Silver Adult 50+) 1 Tab Tab 1 TAB PO DAILY Pravastatin (Pravastatin) 40 Mg Tab 40 MG PO AC DINNER Cholesterol Management #30 Ref 0 TAB Probiotic Product (Acidophilus) 1 Cap Cap 1 CAP PO DAILY Sodium Chloride Neb (Sodium Chloride Neb) 7 % Neb 4 ML NEB BID NEB Dilute in bronchodilator solution in nebulizer before administration. BRONCOSPASM Ref 0 NEBULE Zolpidem (Ambien) 5 Mg Tab 5 MG PO HS INSOMNIA Ref 0 TAB Discontinued Medications: Apixaban (Eliquis) 5 Mg Tab 5 MG PO BID Blood Clot Prevention #60 Ref 0 TAB Shirley Finney MD 05/06/17 1207: Discharge Summary CBC/BMP: 05/03/17 0701 05/03/17 0701 Discharge Instructions Follow up Referrals: Cardiology - 2 Weeks Gastroenterology - 4 Weeks with Carlos Michel MD PCP Follow-up - 1 Week New Orders: CBC NO DIFF - 2-3 Days New Medications: Pantoprazole (Protonix) 40 Mg Tab 40 MG PO DAILY Ulcer Prevention #30 Ref 0 TAB Continued Medications: Ipratropium Neb (Ipratropium Neb) 0.5 Mg/2.5 Ml Amp 0.5 MG NEB BID NEB Breathing Treatment Ref 0 NEBULE Magnesium (Sm Magnesium) 250 Mg Tab 250 MG PO HS Metformin ER (Metformin ER) 1,000 Mg Nasreen 1000 MG PO BID With evening meal Blood Sugar Management #30 Ref 0 TAB Metoprolol Tartrate (Metoprolol Tartrate) 50 Mg Tab 50 MG PO BID #60 Ref 0 TAB Multiple Vitamins W/ Minerals (Centrum Silver Adult 50+) 1 Tab Tab 1 TAB PO DAILY Pravastatin (Pravastatin) 40 Mg Tab 40 MG PO AC DINNER Cholesterol Management #30 Ref 0 TAB Probiotic Product (Acidophilus) 1 Cap Cap 1 CAP PO DAILY Sodium Chloride Neb (Sodium Chloride Neb) 7 % Neb 4 ML NEB BID NEB Dilute in bronchodilator solution in nebulizer before administration. BRONCOSPASM Ref 0 NEBULE Zolpidem (Ambien) 5 Mg Tab 5 MG PO HS INSOMNIA Ref 0 TAB Discontinued Medications: Apixaban (Eliquis) 5 Mg Tab 5 MG PO BID Blood Clot Prevention #60 Ref 0 TAB Rosa Marr MD R3 May 03, 2017 12:59 Shirley Finney MD May 06, 2017 12:07
--- NOTE | 2017-05-03 13:00 | HHI.GIFU ---
Subjective Remarks Pt reports feeling well. She is still a little anemic and is receiving a few more units of blood today prior to anticipated discharge in the afternoon. Denies any abdominal pain nausea or vomiting. Objective Vitals I&O Vital Signs Date Time Temp Pulse Resp B/P Pulse Ox O2 Delivery O2 Flow Rate FiO2 05/03/17 12:06 98.3 114 20 105/54 97 05/03/17 07:50 97.5 119 20 103/53 97 05/03/17 07:35 99 21 05/03/17 04:00 96.8 108 17 113/58 98 05/03/17 00:00 97.9 109 18 98/60 96 05/02/17 21:48 95 21 05/02/17 20:00 98.0 116 17 117/64 97 05/02/17 15:30 98.3 115 20 104/53 96 I/O 05/02/17 05/02/17 05/02/17 05/03/17 05/03/17 05/03/17 07:00 15:00 23:00 07:00 15:00 23:00 Intake Total 0 ml 641 ml Output Total 300 ml 500 ml Balance 0 ml 341 ml -500 ml Intake Oral 0 ml 341 ml Other 300 ml Output Urine Total 300 ml 500 ml # Voids 4 3 1 # Bowel Movements 4 0 0 Laboratory Laboratory Tests Test 05/02/17 05/02/17 05/03/17 05/03/17 15:37 22:26 07:01 09:35 Hemoglobin 7.9 7.7 7.6 Hematocrit 23.9 22.5 23.2 White Blood Count 4.0 Red Blood Count 2.72 Mean Corpuscular Volume 85.3 Mean Corpuscular Hemoglobin 28.1 Mean Corpuscular Hemoglobin 33.0 Concent Red Cell Distribution Width 15.7 Platelet Count 165 Mean Platelet Volume 8.4 Sodium Level 140 Potassium Level 3.8 Chloride Level 104 Carbon Dioxide Level 27.7 Anion Gap 8 Blood Urea Nitrogen 10 Creatinine 0.43 Estimat Glomerular Filtration 144 Rate Random Glucose 118 Calcium Level 8.5 Blood Type O POSITIVE Crossmatch Leukocyte-Reduced Red Blood Cells Blood Bank Comment Date/Time Procedure Status Source Growth 05/01/17 10:30 Urine Culture - Final Complete Urine Random Urine 50-100,000 CFU/ML MIXED SUSHIL... Physical Exam HEENT: Pupils round and reactive to light; normocephalic; atraumatic; no jaundice. Throat is clear. NECK: Neck is supple, no JVD, no lymphadenopathy. CHEST: Chest is clear to auscultation and percussion. CARDIAC: Regular rate and rhythm with no murmur gallop or rubs. ABDOMEN: Soft, nondistended, nontender; no hepatosplenomegaly; bowel sounds are present in all four quadrants. EXTREMITIES: No clubbing, cyanosis, or edema. SKIN: Normal; no rash; no jaundice. LURE MAKER: No focal deficits; alert and oriented times three. Assessment and Plan Plan Impression: - Gastric antral erosive gastritis, with ulcers. No active bleeding. - Colon polyp, diminutive - Anemia probably due blood loss secondary to use of Erosive gastritis and use of Eliquis Plan: - OK to discharge home today - Followup with [facility] in 3 weeks - Repeat EGD in few months - Repeat colonoscopy in 5 years Serafin Tran MD May 03, 2017 13:00
[2017-05-03] MEDS: cefTRIAXone INJ 1,000 MG in SODIUM CHLORIDE 0.9% INJ 100 ML IV SCH (15:26)
[2017-05-03] MEDS ORDERED: PRAVASTATIN SOD 40 MG TAB PO SCH (16:00)
[2017-05-03] MEDS ORDERED: metFORMIN HCL 500 MG TAB PO SCH (18:00)
[2017-05-03] MEDS ORDERED: METOPROLOL TARTRATE 50 MG TAB PO SCH (21:00)
[2017-05-03 22:39] LABS: REVIEW FLAG FINAL
== END 2017-05-03 23:15 | disposition home or self-care (01) | DRG 378 ==
LOC: NEPE 08:06 → NEDA 09:31 → HOCA 12:16
PROVIDERS: ADMIT Family Medicine; ATTEND Family Medicine
PROC: 30233N1 Transfusion of Nonautologous Red Blood Cells into Peripheral Vein, Percutaneous Approach (ICD-10-PCS; principal; 2017-05-01)
PROC: 0DBP8ZX Excision of Rectum, Via Natural or Artificial Opening Endoscopic, Diagnostic (ICD-10-PCS; 2017-05-02)
PROC: 0DB68ZX Excision of Stomach, Via Natural or Artificial Opening Endoscopic, Diagnostic (ICD-10-PCS; 2017-05-02 11:26)
DX: K25.4 Chronic or unspecified gastric ulcer with hemorrhage (principal); I48.92 Unspecified atrial flutter; D62 Acute posthemorrhagic anemia; N39.0 Urinary tract infection, site not specified; E11.9 Type 2 diabetes mellitus without complications; Z79.84 Long term (current) use of oral hypoglycemic drugs; K29.60 Other gastritis without bleeding; K44.9 Diaphragmatic hernia without obstruction or gangrene; Z79.02 Long term (current) use of antithrombotics/antiplatelets; Z79.1 Long term (current) use of non-steroidal anti-inflammatories (NSAID); K62.1 Rectal polyp; M19.90 Unspecified osteoarthritis, unspecified site; J47.9 Bronchiectasis, uncomplicated; Z77.22 Contact with and (suspected) exposure to environmental tobacco smoke (acute) (chronic); I25.10 Atherosclerotic heart disease of native coronary artery without angina pectoris; I48.0 Paroxysmal atrial fibrillation; E78.00 Pure hypercholesterolemia, unspecified; J44.9 Chronic obstructive pulmonary disease, unspecified; I10 Essential (primary) hypertension
CPT/HCPCS: 36430; 71010; 80048; 80053; 81001; 82550; 82948; 83735; 83880; 84484; 85014; 85018; 85025; 85027; 85610; 85730; 86850; 86900; 86901; 86920; 87086; 88305; 88312; 93005; 96360; C9113; J0696; J1200; J1940; J7030; J7040; J7050; P9016

== ENCOUNTER → 2017-05-10 | Outpatient (CLI) | payer MEDICARE, OTHER ==
[~2017-05-10] MED LIST changes: -APIX5TAB PO; -DILT31TA PO; -GUAI100S5 PO; -LEVA750T PO; -METO25TA3 PO; +METO50TA PO; -PRED5PAK PO; +PROT40TA PO; -SOTA120T PO
[2017-05-10 08:47] LABS: HEMATOCRIT 35.3 % (35.0-46.0); MEAN CELL VOLUME 86.1 FL (80.0-100.0); MEAN CORPUSCULAR HEMOGLOBIN 28.3 PG (27.0-34.0); MEAN CORPUSCULAR HGB CONC 32.8 % (32.0-36.0); PLATELET COUNT 272 TH/MM3 (150-450); RED BLOOD COUNT 4.11 MIL/MM3 (4.00-5.30); REVIEW FLAG FINAL; WHITE BLOOD COUNT 5.2 TH/MM3 (4.0-11.0)
== END ==
LOC: PLAB 07:40
PROVIDERS: ATTEND Family Medicine
DX: R78.9 Finding of unspecified substance, not normally found in blood (principal); R53.83 Other fatigue; K92.2 Gastrointestinal hemorrhage, unspecified
CPT/HCPCS: 36415; 85027

== ENCOUNTER → 2017-05-19 | Outpatient (CLI) | payer MEDICARE, OTHER ==
[2017-05-19 09:54] LABS: HEMATOCRIT 36.4 % (35.0-46.0); MEAN CELL VOLUME 86.9 FL (80.0-100.0); MEAN CORPUSCULAR HEMOGLOBIN 28.3 PG (27.0-34.0); MEAN CORPUSCULAR HGB CONC 32.6 % (32.0-36.0); PLATELET COUNT 220 TH/MM3 (150-450); RED BLOOD COUNT 4.19 MIL/MM3 (4.00-5.30); RED CELL DISTRIBUTION WIDTH 14.3 % (11.6-17.2); REVIEW FLAG FINAL; WHITE BLOOD COUNT 5.8 TH/MM3 (4.0-11.0)
[2017-05-19 10:21] LABS: TRANSFERRIN IRON PROFILE 299 MG/DL (200-360)
[2017-05-19 10:47] LABS: FERRITIN 32 NG/ML (8-252)
== END ==
LOC: PLAB 07:37
PROVIDERS: ATTEND Family Medicine
DX: R53.83 Other fatigue (principal); D64.9 Anemia, unspecified
CPT/HCPCS: 36415; 82607; 82728; 82746; 83540; 83550; 85027

== ENCOUNTER → 2017-06-04 | Outpatient (CLI) | payer MEDICARE, OTHER ==
[2017-06-04 09:22] LABS: HEMATOCRIT 34.6 % (35.0-46.0); MEAN CELL VOLUME 85.7 FL (80.0-100.0); MEAN CORPUSCULAR HEMOGLOBIN 29.2 PG (27.0-34.0); MEAN CORPUSCULAR HGB CONC 34.1 % (32.0-36.0); PLATELET COUNT 228 TH/MM3 (150-450); RED BLOOD COUNT 4.04 MIL/MM3 (4.00-5.30); RED CELL DISTRIBUTION WIDTH 14.1 % (11.6-17.2); REVIEW FLAG FINAL; WHITE BLOOD COUNT 4.9 TH/MM3 (4.0-11.0)
== END ==
LOC: PLAB 07:45
PROVIDERS: ATTEND Family Medicine
DX: R53.83 Other fatigue (principal); D64.9 Anemia, unspecified
CPT/HCPCS: 36415; 85027

== ENCOUNTER → 2017-07-07 | Day surgery (SDC) | payer MEDICARE, OTHER ==
[~2017-07-07] MED LIST changes: +PROPOFOL 200 MG/20 ML AMP IV ONE
--- NOTE | 2017-07-07 12:37 | GIPROC ---
[facility] [address] [facility], [address] EGD PROCEDURE REPORT EXAM DATE: 07/07/2017 PATIENT NAME: Christina Hall MR #: [id number] BIRTHDATE: 1945 ATTENDING: Jake Torrez MD ORDER #: [id number] MOLD SETTER: [place] Sen RN STATUS: outpatient INDICATIONS: The patient is a 72 yr old female here for an EGD due to follow up on ulcer PROCEDURE PERFORMED: EGD w/ biopsy MEDICATIONS: None and Per Anesthesia. TOPICAL ANESTHETIC: CONSENT: The patient understands the risks and benefits of the procedure and understands that these risks include, but are not limited to: sedation, allergic reaction, infection, perforation and/or bleeding. Alternative means of evaluation and treatment include, among others: physical exam, x-rays, and/or surgical intervention. The patient elects to proceed with this endoscopic procedure. medical equipment was checked for proper function. Hand hygiene and appropriate measures for infection prevention was taken. After the risks, benefits and alternatives of the procedure were thoroughly explained, Informed consent was verified, confirmed and timeout was successfully executed by the treatment team. The patient was anesthetized with topical anesthesia and the EC-[id number] ([id number]) endoscope was introduced through the mouth and advanced to the second portion of the duodenum. Retroflexed views revealed a hiatal hernia The gastroscope was then slowly withdrawn and removed. ESOPHAGUS: The mucosa of the esophagus appeared normal. STOMACH: There was erythematous moderate and erosive gastritis in the gastric body. DUODENUM: The duodenal mucosa appeared normal in the bulb and second portion of the duodenum. ADVERSE EVENTS: There were no complications. IMPRESSIONS: 1. The esophagus appeared normal 2. There was erythematous gastritis in the gastric body 3. Normal duodenal mucosa in the bulb and second portion of the duodenum 4. Retroflexed views revealed a hiatal hernia RECOMMENDATIONS: 1. Anti-reflux regimen 2. Continue PPI 3. Avoid NSAIDS PATIENT CONDITION: stable DISPOSITION: Home REPEAT EXAM: Return 1 year EGD pending biopsy results Jake Torrez MD eSigned: Jake Torrez MD 07/07/2017 12:36 PM cc: Johsua Valerio [facility] Dorina salgado M.D. PATIENT NAME: Christina Hall MR#: [id number]
== END | disposition home or self-care (01) ==
LOC: ESDC 11:35
PROVIDERS: ATTEND Internal Medicine Gastroenterology
DX: K25.9 Gastric ulcer, unspecified as acute or chronic, without hemorrhage or perforation (principal); K29.70 Gastritis, unspecified, without bleeding; K44.9 Diaphragmatic hernia without obstruction or gangrene
CPT/HCPCS: 00740; 43239; 88305; 88312; J3010

== ENCOUNTER → 2017-11-25 | Outpatient (CLI) | payer MEDICARE, OTHER ==
[~2017-11-25] MED LIST changes: -PROPOFOL 200 MG/20 ML AMP IV ONE
[2017-11-25 09:53] LABS: HEMOGLOBIN 11.9 GM/DL (11.6-15.3); MEAN CELL VOLUME 84.3 FL (80.0-100.0); MEAN CORPUSCULAR HEMOGLOBIN 28.6 PG (27.0-34.0); PLATELET COUNT 189 TH/MM3 (150-450); RED BLOOD COUNT 4.15 MIL/MM3 (4.00-5.30); RED CELL DISTRIBUTION WIDTH 12.8 % (11.6-17.2); WHITE BLOOD COUNT 5.4 TH/MM3 (4.0-11.0)
[2017-11-25 09:57] LABS: ALBUMIN 3.8 GM/DL (3.4-5.0); AST (GOT) 14 U/L (15-37); BICARBONATE 30.3 MEQ/L (21.0-32.0); BLOOD UREA NITROGEN 10 MG/DL (7-18); CHLORIDE 100 MEQ/L (98-107); GLOMERULAR FILTRATION RATE 98 ML/MIN (>89); GLUCOSE,FASTING 103 MG/DL (74-99); SODIUM (NA) 139 MEQ/L (136-145)
[2017-11-25 09:59] LABS: ALT (GPT) 22 U/L (10-53); CHOLESTEROL 162 MG/DL (120-200); TRIGLYCERIDES 120 MG/DL (42-150)
[2017-11-25 10:02] LABS: ALKALINE PHOSPHATASE 52 U/L (45-117); CHOLESTEROL/ HDL RATIO 2.57 RATIO; HDL CHOLESTEROL 62.9 MG/DL (40.0-60.0); LDL CHOLESTEROL 75 MG/DL (0-99); TOTAL BILIRUBIN ADULT 0.4 MG/DL (0.2-1.0)
[2017-11-25 11:01] LABS: HEMOGLOBIN A1C 6.1 % (4.3-6.0)
== END ==
LOC: PLAB 07:46
PROVIDERS: ATTEND Family Medicine
DX: R10.9 Unspecified abdominal pain (principal); E11.9 Type 2 diabetes mellitus without complications; R78.9 Finding of unspecified substance, not normally found in blood; D64.9 Anemia, unspecified; E87.6 Hypokalemia
CPT/HCPCS: 36415; 80053; 80061; 83036; 85027

== ENCOUNTER → 2018-05-12 | Outpatient (CLI) | payer MEDICARE, OTHER ==
[2018-05-12 10:35] LABS: HEMATOCRIT 36.6 % (35.0-46.0); HEMOGLOBIN 12.2 GM/DL (11.6-15.3); MEAN CELL VOLUME 84.2 FL (80.0-100.0); MEAN CORPUSCULAR HEMOGLOBIN 28.2 PG (27.0-34.0); MEAN CORPUSCULAR HGB CONC 33.5 % (32.0-36.0); MEAN PLATELET VOLUME 8.9 FL (7.0-11.0); PLATELET COUNT 211 TH/MM3 (150-450); RED BLOOD COUNT 4.34 MIL/MM3 (4.00-5.30); RED CELL DISTRIBUTION WIDTH 12.5 % (11.6-17.2); WHITE BLOOD COUNT 4.3 TH/MM3 (4.0-11.0)
[2018-05-12 10:56] LABS: ALBUMIN 4.1 GM/DL (3.4-5.0); AST (GOT) 14 U/L (15-37); BICARBONATE 30.6 MEQ/L (21.0-32.0); BLOOD UREA NITROGEN 13 MG/DL (7-18); CALCIUM 9.4 MG/DL (8.5-10.1); CHLORIDE 102 MEQ/L (98-107); CHOLESTEROL 152 MG/DL (120-200); CREATININE 0.59 MG/DL (0.50-1.00); GLOMERULAR FILTRATION RATE 100 ML/MIN (>89); GLUCOSE,FASTING 107 MG/DL (74-99); SODIUM (NA) 140 MEQ/L (136-145)
[2018-05-12 10:57] LABS: TRIGLYCERIDES 102 MG/DL (42-150)
[2018-05-12 11:25] LABS: % SATURATION IRON PROFILE 9.7 % (20-50); ALKALINE PHOSPHATASE 52 U/L (45-117); ALT (GPT) 19 U/L (10-53); CHOLESTEROL/ HDL RATIO 2.28 RATIO; FERRITIN 12 NG/ML (8-252); FREE T4 1.02 NG/DL (0.76-1.46); HDL CHOLESTEROL 66.6 MG/DL (40.0-60.0); IRON (FE) 44 MCG/DL (50-170); LDL CHOLESTEROL 65 MG/DL (0-99); TOTAL BILIRUBIN ADULT 0.3 MG/DL (0.2-1.0); TOTAL IRON BINDING CAPACITY 454 MCG/DL (250-450); TOTAL PROTEIN 7.3 GM/DL (6.4-8.2)
[2018-05-12 12:21] LABS: FOLATE GREATER THAN 20.0 NG/ML (3.1-17.5)
== END ==
LOC: PLAB 07:45
PROVIDERS: ATTEND Family Medicine
DX: K25.0 Acute gastric ulcer with hemorrhage (principal); E87.6 Hypokalemia; D64.9 Anemia, unspecified; Z13.29 Encounter for screening for other suspected endocrine disorder
CPT/HCPCS: 36415; 80053; 80061; 82607; 82728; 82746; 83540; 83550; 84439; 84443; 85027